=== PATIENT | male | born 1955 | race Caucasian/White ===

== ENCOUNTER 2020-10-15 13:58 | Inpatient (IN) | payer BC, SELFPAY ==
[2020-10-15] VITALS (18 sets, daily range): BP systolic 100–137; BP diastolic 42–67; PULSE 55–65; RESP 16–35; TEMP 36.4–36.8; O2SAT 87–98; BMI 30.4
--- NOTE | ~2020-10-15 | XR_ITS ---
XR abdomen/kub 1V 10/17/2020 17:57 INDICATION: Abdominal pain and bloating TECHNIQUE: KUB COMPARISON: None FINDINGS: Bowel gas pattern is normal. There is no evidence of free air, mass, organomegaly, ascites or obstruction. No abnormal calculi are seen. The bones appear intact. There is bibasilar airspace disease, consistent with pneumonia. IMPRESSION: 1: No acute abdominal abnormality identified. 2: Bibasilar airspace disease, compatible with pneumonia. Reviewed, dictated and finalized at location A. WICH MACHINE OPERATOR
--- NOTE | ~2020-10-15 | XR_ITS ---
EXAMINATION: XR chest 1V portable DATE: 10/15/2020 15:44 INDICATION: Shortness of breath. COVID-19 pneumonia. TECHNIQUE: A single frontal view of the chest was obtained. COMPARISON: Chest 2 views 06/20/2019 FINDINGS: There are patchy airspace opacities throughout the lungs bilaterally. No pleural effusion o r pneumothorax. The heart size is normal. IMPRESSION: 1. Diffuse lung disease, consistent with pneumonia. Reviewed, dictated and finalized at location A. CUTTER
--- NOTE | 2020-10-15 14:27 | ECG_ITS ---
Measurements Intervals [place] Rate: 57 P: 50 WI: 142 QRS: 63 QRSD: 84 T: 42 QT: 426 QTc: 418 Interpretive Statements SINUS BRADYCARDIA POSSIBLE LEFT ATRIAL ENLARGEMENT BASELINE ARTIFACT- II, III, AVF, V3 BORDERLINE ECG Electronically Signed On 10-15-2020 15:27:20 ROPER OPERATOR by Wang Chaves D.O.
[2020-10-15 14:59] LABS: Basophils Percent Auto 0.2 % (0.2-1.2); Eosinophils Percent Auto 0.1 % (0-4.4); Hematocrit 36.7 % (42.0-52.0); Hemoglobin 12.7 g/dL (14.0-18.0); Immature Granulocyte Absolute 0.05 K/mm3 (0.00-0.031); Immature Granulocyte Percent A 0.5 % (0-0.5); Lymphocytes Absolute Auto 0.81 K/mm3 (0.9-3.2); Lymphocytes Percent Auto 8.4 % (18.3-44.2); Mean Corpuscular HGB Conc 34.6 g/dl (32-36); Mean Corpuscular Hemoglobin 31.4 pg (26-34); Mean Corpuscular Volume 90.8 fl (80-100); Mean Platelet Volume 10.8 fl (7.4-10.4); Monocytes Absolute Auto 0.4 K/mm3 (0.1-0.6); Monocytes Percent Auto 4.6 % (2.6-8.5); Neutrophils Absolute Auto 8.3 K/mm3 (1.3-6.7); Neutrophils Percent Auto 86.2 % (45.5-73.1); Platelet Count Result 212 k/mm3 (150-375); Red Blood Count 4.04 M/mm3 (4.6-6.20); Red Cell Distribution Width 12.3 % (11.5-14.5); White Blood Count 9.7 K/mm3 (4.5-10.0)
[2020-10-15 15:08] LABS: Anion Gap 8 mmol/L (8-16); Blood Urea Nitrogen 19 mg/dL (9-20); Calcium 8.5 mg/dL (8.4-10.2); Carbon Dioxide 28 mmol/L (22-30); Chloride 91 mmol/L (98-107); Estimated CRCL calculation 102 ml/min; Estimated Glomerular Filt Rate > 60; Glucose 129 mg/dL (75-110); Potassium 4.2 mmol/L (3.4-5.0); Sodium 127 mmol/L (137-145)
--- NOTE | 2020-10-15 15:45 | PC.NURSE ---
patient brought back to ED room 14 with c/o cough and dyspnea. see initial notes. alert. oriented. patient has been in our waiting area due to no beds available in ED. no change in condition since triage completed. labs drawn in triage. CXR done and EKG done. patient now on 2L NC O2 due to decreased RA sats. on patient monitor. has call light in reach. discussed current treatment plan and expected wait time with patient.
--- NOTE | 2020-10-15 16:37 | ED.SOB ---
HPI - SOB/Dyspnea General Chief Complaint: Shortness of Breath/Dyspnea Stated Complaint: covid +, trouble breathing Time Seen by Provider: 10/15/20 15:47 History of Present Illness HPI Narrative: Patient is a 65-year-old male who presents ER with complications of COVID-19. Diagnosed on 10/09/2020. Reports he is just been feeling fatigued and mildly dyspneic. Reports he has persistent cough. Reports he is encouraged by his to come here to be evaluated because she felt he was declining and that symptoms of lasted too long. Patient found to be hypoxic in the 80s on room air. He is now requiring couple liters of oxygen. He has not been taking any additional medications. Reports he was exposed to at work before becoming ill. Related Data Home Medications Medication Instructions Recorded Confirmed aspirin 81 mg tablet,delayed 81 mg PO DAILY 10/06/19 04/17/20 release Allergies Allergy/AdvReac Type Severity Reaction Status Date / Time No Known Allergies Allergy Verified 05/02/20 09:02 Review of Systems Review of Systems: All systems reviewed & are unremarkable except as noted in HPI and below Constitutional: Constitutional: Denies chills, Reports fatigue and Denies fever(s) ENT: Denies nasal congestion and Denies sore throat Cardiovascular: Cardiovascular: Denies chest pain Respiratory: Respiratory: Reports cough, Reports dyspnea and Denies wheezing Gastrointestinal: Gastrointestinal: Denies abdominal pain, Denies nausea and Denies vomiting PMFSH Past Medical History Medical History (Updated 10/15/20 @ 17:06 by Roger Arciniega MD) Essential hypertension Surgical History Surgical History H/O adenoidectomy History of appendectomy History of tonsillectomy Family History Family History Mother Cerebrovascular accident Father Family history of heart disease in male family member before age 55 Family history of atrial fibrillation Cerebrovascular accident, Onset Age: 91 Sibling Family history of diabetes mellitus in first degree relative Family history of malignant neoplasm of breast in first degree relative Diabetes mellitus Family history of malignant neoplasm of breast Other Hypertension Social History Social History (Updated 05/02/20 @ 09:04 by Samantha Newby MA) Smoking status: Never smoker Second hand tobacco smoke exposure: No Alcohol intake: current Substance use: never Exam Narrative: Exam Narrative: GENERAL: Well-appearing, well-nourished, and in no acute distress. HEAD: Normocephalic, atraumatic. CHEST: Clear to auscultation. No respiratory distress. HEART: Regular rate and rhythm. Normal peripheral pulses. ABDOMEN: Soft, nontender, nondistended. EXTREMITIES: Normal range of motion. No edema. SKIN: Warm, dry, no rash. NEURO: Alert and oriented x3. PSYCH: Normal mood and affect. Course Course Emergency Course: Admit to the hospitalist service. Patient receiving IV Decadron. She has a 2 L oxygen requirement at this time. Vital Signs Vital signs: Vital Signs Temperature 97.6 F 10/15/20 14:22 Pulse Rate 55 L 10/15/20 14:22 Respiratory Rate 16 10/15/20 14:22 Blood Pressure 100/42 L 10/15/20 14:22 Pulse Oximetry 93 10/15/20 14:22 Temperature 97.6 F 10/15/20 14:22 Pulse Rate 64 10/15/20 16:31 Respiratory Rate 30 H 10/15/20 16:31 Blood Pressure 124/64 10/15/20 16:31 Pulse Oximetry 95 10/15/20 16:31 MDM - SOB/Dyspnea Lab Data Result diagrams: 10/15/20 14:43 10/15/20 14:43 Labs: Lab Results 10/15/20 10/15/20 Range/Units 14:43 14:43 WBC 9.7 (4.5-10.0) K/mm3 RBC 4.04 L (4.6-6.20) M/mm3 Hgb 12.7 L (14.0-18.0) g/dL Hct 36.7 L (42.0-52.0) % MCV 90.8 (80-100) fl MCH 31.4 (26-34) pg MCHC 34.6 (32-36) g/dl RDW 12.3 (11.5-14.5)
--- NOTE | 2020-10-15 16:52 | PC.NURSE ---
spoke with patient's . she will bring his CPap up for use when patient admitted.
--- NOTE | 2020-10-15 17:39 | PC.NURSE ---
report given to Joyce PAREKH on 3rd floor. patient to 302 via stretcher and repair technician. patient on 2L NC O2. no change in patient's condition. denies needs prior to transfer.
--- NOTE | 2020-10-15 17:45 | ADMGEN ---
This patient, Richard Spencer, was admitted to [facility] Surg Room 302-01. Patient/family oriented to hospital policies and general routines including ID bracelet, bed and alarms, visiting hours, pain management, procedures, bathroom and other care routines, personal items, smoking policy, room service/diet, and visiting hours. Reviewed plan of care. Information on how to activate the Rapid Response Team has been discussed. Patient/Family are encouraged to report perceived risks to care and to ask questions if they do not understand what they are told or what they should do.
--- NOTE | 2020-10-15 23:23 | PM.IMHP ---
H&P: HPI History of Present Illness Date/Time: 10/15/20 23:23 Chief Complaint: Shortness of breath Narrative: Richard Spencer is a 65 year old male tested positive for covid 19 1 week ago. The patient has hypertension obstructive sleep apnea. The patient does not wear oxygen at home. The positive test was on 10/09/2020. His fatigue or and mildly dyspneic. Persistent cough. Patient had sick contacts at his work. Patient was hypoxic and was in the 80s on room air. Was read as diffuse lung disease consistent with pneumonia. Patient was started on Decadron in the emergency room. The patient brought in his own CPAP machine but weeks plain that we cannot use it that room. He is on oxygen at 2 L per nasal cannula. The patient is satting 94% on the 2 L per nasal cannula. His and twin boys are negative. Patient is being admitted to inpatient status date of service is 10/15/2020 Review of Systems Review of Systems: All systems reviewed & are unremarkable except as noted in HPI and below Constitutional: Constitutional: Reports as per HPI and Reports no additional constitutional complaints Eyes: Eyes: Reports as per HPI and Reports no additional eye complaints ENT: Reports system reviewed and no additional complaints, except as documented and Reports Normal hearing present Cardiovascular: Cardiovascular: Reports no additional cardiovascular complaints Respiratory: Respiratory: Reports no additional respiratory complaints and Reports no additional respiratory complaints Gastrointestinal: Gastrointestinal: Reports as per HPI and Reports no additional gastrointestinal complaints Musculoskeletal: Musculoskeletal: Reports no additional musculoskeletal complaints Integumentary/Breasts: Skin/Breast: Reports system reviewed and no additional complaints, except as docu and Reports as per HPI Neurologic: Reports system reviewed and no additional complaints, except as documented, Reports as per HPI and Reports Normal hearing present Psychiatric: Psychiatric: Reports no additional psychiatric complaints and Reports as per HPI Endocrine: Endocrine: Reports no additional endocrine complaints Hematologic/Lymphatic: Hematologic/Lymphatic: Reports no additional hematologic/lymphatic complaints Allergic/Immunologic: Allergic/Immunologic: Reports no additional allergic/immunologic complaints [facility] Past Medical History Medical History (Updated 10/15/20 @ 23:42 by Elsi Hubbard NP) Essential hypertension Hyperlipidemia Surgical History Surgical History (Updated 10/15/20 @ 23:42 by Elsi Hubbard NP) H/O adenoidectomy H/O shoulder surgery Labrum tear repair History of appendectomy History of tonsillectomy Family History Family History Mother Cerebrovascular accident Father Family history of heart disease in male family member before age 55 Family history of atrial fibrillation Cerebrovascular accident, Onset Age: 91 Sibling Family history of diabetes mellitus in first degree relative Family history of malignant neoplasm of breast in first degree relative Diabetes mellitus Family history of malignant neoplasm of breast Other Hypertension Social History Social History (Updated 10/15/20 @ 23:43 by Elsi Hubbard NP) Social History: The patient lives with his . She has is durable power contract attorney for healthcare. He works for [employer]. He desires to be a full code. Lifelong nonsmoker. He has twin boys. No alcohol or illicit drugs. Smoking status: Never smoker Second hand tobacco smoke exposure: No Alcohol intake: current Drinks per week: 12 Substance use: never Gender identity (if verbalized by the patient): Male Sexual Orientation (if Verbalized by the Patient): Straight or Heterosexual Spiritual care concerns: No Meds Home Medications and Allergies Home Medications Medication Instructions
[2020-10-15 23:56] LABS: Alanine Aminotransferase 53 U/L (4-50)
[2020-10-16] VITALS (7 sets, daily range): BP systolic 121–155; BP diastolic 59–78; PULSE 54–74; RESP 18–20; TEMP 36.2–36.6; O2SAT 91–96
[2020-10-16] MEDS: guaiFENesin/DEXTROMETHORPHAN 10 ML UDC PO ×4 (00:28→21:54)
[2020-10-16] MEDS: REMDESIVIR 200 MG/NS 250 ML 200 MG/250 ML BAG 250 MG IVPB (00:55)
[2020-10-16 06:28] LABS: Basophils Percent Auto 0.1 % (0.2-1.2); Hematocrit 33.4 % (42.0-52.0); Hemoglobin 11.5 g/dL (14.0-18.0); Immature Granulocyte Absolute 0.06 K/mm3 (0.00-0.031); Immature Granulocyte Percent A 0.7 % (0-0.5); Lymphocytes Absolute Auto 0.58 K/mm3 (0.9-3.2); Mean Corpuscular HGB Conc 34.4 g/dl (32-36); Mean Corpuscular Hemoglobin 30.8 pg (26-34); Mean Corpuscular Volume 89.5 fl (80-100); Mean Platelet Volume 11.4 fl (7.4-10.4); Monocytes Absolute Auto 0.4 K/mm3 (0.1-0.6); Monocytes Percent Auto 4.6 % (2.6-8.5); Neutrophils Absolute Auto 7.3 K/mm3 (1.3-6.7); Neutrophils Percent Auto 87.6 % (45.5-73.1); Platelet Count Result 207 k/mm3 (150-375); Red Blood Count 3.73 M/mm3 (4.6-6.20); Red Cell Distribution Width 12.1 % (11.5-14.5); White Blood Count 8.3 K/mm3 (4.5-10.0)
[2020-10-16 07:11] LABS: Alanine Aminotransferase 64 U/L (4-50); Albumin Level 3.5 g/dL (3.5-5.1); Alkaline Phosphatase 100 U/L (38-126); Anion Gap 8 mmol/L (8-16); Aspartate Amino Transferase 94 U/L (17-59); Bilirubin,Total 0.8 mg/dL (0.2-1.3); Blood Urea Nitrogen 19 mg/dL (9-20); Calcium 8.4 mg/dL (8.4-10.2); Carbon Dioxide 27 mmol/L (22-30); Chloride 92 mmol/L (98-107); Estimated CRCL calculation 115 ml/min; Estimated Glomerular Filt Rate > 60; Glucose 155 mg/dL (75-110); Lactate Dehydrogenase 975 U/L (313-618); Magnesium 2.3 mg/dL (1.6-2.3); Sodium 127 mmol/L (137-145)
[2020-10-16] MEDS: carvediloL 25 MG TABLET PO ×2 (08:02→20:35)
[2020-10-16] MEDS: hydroCHLOROthiazide 12.5 MG CAPSULE PO (08:02)
[2020-10-16] MEDS: ASPIRIN 81 MG ENTERIC TABLET PO (08:02)
[2020-10-16] MEDS: DEXAMETHASONE SOD PHOS INJ 4 MG/ML VIAL 6 MG IV PUSH (08:03)
[2020-10-16] MEDS: ENOXAPARIN 40 MG/0.4 ML SYRINGE SUB-Q (08:03)
--- NOTE | 2020-10-16 16:56 | PM.IMPN ---
Progress Note: A&P Assessment and Plan (1) Acute respiratory failure with hypoxia: Code(s): J96.01 - Acute respiratory failure with hypoxia Status: Acute Assessment and Plan: Secondary to COVID-19 pneumonia. Patient was noted to be hypoxic in the 80s upon presentation. Currently requiring 2 L O2 per nasal cannula and maintaining adequate oxygen saturations. Continue supplemental O2 as needed with goal saturation 90% or above Treatment for COVID-19 as described below. (2) Pneumonia due to COVID-19 virus: Code(s): U07.1 - COVID-19; J12.89 - Other viral pneumonia Status: Acute Assessment and Plan: Patient tested postive for COVID-19 on 10/09/20. Symptoms started approximately 2 days prior. CXR showed diffuse lung disease. He has remained afebrile. Continue dexamethasone for 10 days, started on 10/16/2020 Continue room does severe for 5 days, started on 10/16/2020 Continue supportive care to include bronchodilators, guaifenesin, and incentive spirometer Trend acute phase reactants Supplemental O2 as above. Wean to goal. Continue isolation precautions (3) Essential hypertension: Code(s): I10 - Essential (primary) hypertension Status: Acute Assessment and Plan: Blood pressure evaluated today and is stable at 121/59. Continue Coreg, irbesartan, and hydrochlorothiazide Monitor blood pressure daily (4) Obstructive sleep apnea syndrome: Code(s): G47.33 - Obstructive sleep apnea (adult) (pediatric) Status: Chronic Assessment and Plan: Uses CPAP nightly Not able to use CPAP at this time as he is not a negative pressure room. Continue supplemental O2. Subjective Date/time seen: 10/16/20 16:56 Interval history: Date of service: 10/16/2020 Richard Spencer is a 65 year old male with a history of HTN, HLD, and ESTELA who is seen in follow-up for COVID-19 pneumonia. At this time he is feeling about the same. He complains of an upset stomach that he has a hard time describing. It seems that it is mostly like a gas pain in the lower abdomen. He denies nausea. He denies bloating or cramping. He has been eating and drinking well. He denies diarrhea. He had a regular bowel movement this morning. He denies anosmia or dysgeusia. He denies urinary symptoms. He reports sporadic, dry cough. He does endorse mild dyspnea on exertion that he notes when he gets up from bed or bends over. He has been able to walk to the bathroom without much difficulty. He denies chest pain or palpitations. He denies wheezing. No PND or orthopnea. He has no additional complaints at this time. He requested that his be present for the conversation via speaker phone. All of their questions were answered. Review of Systems Review of Systems: All systems reviewed & are unremarkable except as noted in HPI and below Exam Narrative: Exam Narrative: Mr. Spencer is a well-nourished 65-year-old male who is sitting up at the bedside. He appears comfortable and is in NARD. HR 61, BP 121/59, R 18, T 97.2?, 93% on 2 L Neuro: awake, alert and oriented x4, speech clear, no focal neuro deficits noted HEENMT: normocephalic, atraumatic, EOMI, sclerae anicteric, moist oral mucosa, tongue midline, nares patent Neck: supple, no lymphadenopathy Respiratory: Diminished breath sounds bilaterally, nonlabored breathing, dry cough noted on exam Cardio: regular rate, regular rhythm with S1-S2 Abdomen: nondistended, normoactive bowel sounds, soft, nontender to palpation, no rigidity or guarding Extremities: no edema, erythema, cyanosis, clubbing, or tenderness to palpation, DP pulses 2+ bilaterally Skin: no rashes or lesions, warm and dry Psych: appropriate mood and affect, judgment and insight intact Objective Data Vital Signs Vital Signs: Vital Signs - 24 hr 10/15/20 17:00 10/15/20 17:01 10/15/20 17:15 Temperature Pulse Rate 64 63 63 Respiratory Rate 35 H
[2020-10-16] MEDS: SIMETHICONE 80 MG TAB.CHEW PO ×2 (17:09→20:35)
[2020-10-16] MEDS: MELATONIN 5 MG TABLET PO (20:35)
[2020-10-16] MEDS: REMDESIVIR 100 MG/NS 250 ML 100 MG/250 ML BAG 250 MG IVPB (21:54)
[2020-10-17] VITALS (10 sets, daily range): BP systolic 134–155; BP diastolic 70–82; PULSE 51–70; RESP 18–20; TEMP 36.1–36.8; O2SAT 92–96
[2020-10-17 06:42] LABS: Hematocrit 33.7 % (42.0-52.0); Hemoglobin 11.7 g/dL (14.0-18.0); Mean Corpuscular HGB Conc 34.7 g/dl (32-36); Mean Corpuscular Hemoglobin 30.9 pg (26-34); Mean Corpuscular Volume 88.9 fl (80-100); Platelet Count Result 254 k/mm3 (150-375); Red Blood Count 3.79 M/mm3 (4.6-6.20); Red Cell Distribution Width 11.9 % (11.5-14.5); White Blood Count 8.7 K/mm3 (4.5-10.0)
[2020-10-17 07:01] LABS: Chloride 91 mmol/L (98-107)
[2020-10-17 07:12] LABS: Alanine Aminotransferase 119 U/L (4-50); Albumin Level 3.5 g/dL (3.5-5.1); Alkaline Phosphatase 103 U/L (38-126); Anion Gap 8 mmol/L (8-16); Aspartate Amino Transferase 138 U/L (17-59); Bilirubin,Total 0.8 mg/dL (0.2-1.3); Blood Urea Nitrogen 25 mg/dL (9-20); CRP 5.6 mg/dL (<1.0); Calcium 8.2 mg/dL (8.4-10.2); Carbon Dioxide 26 mmol/L (22-30); Estimated CRCL calculation 132 ml/min; Estimated Glomerular Filt Rate > 60; Glucose 139 mg/dL (75-110); Lactate Dehydrogenase 1059 U/L (313-618); Sodium 125 mmol/L (137-145)
[2020-10-17] MEDS: ALBUTEROL SULFATE (*SP) INHALER 2 PUFF INHALATION ×2 (08:21→20:23)
[2020-10-17] MEDS: ASPIRIN 81 MG ENTERIC TABLET PO (09:13)
[2020-10-17] MEDS: hydroCHLOROthiazide 12.5 MG CAPSULE PO (09:13)
[2020-10-17] MEDS: guaiFENesin 12 HR 600 MG TABCR PO ×2 (09:13→20:27)
[2020-10-17] MEDS: carvediloL 25 MG TABLET PO ×2 (09:14→20:27)
[2020-10-17] MEDS: ENOXAPARIN 40 MG/0.4 ML SYRINGE SUB-Q ×2 (09:14→20:29)
[2020-10-17] MEDS: DEXAMETHASONE SOD PHOS INJ 4 MG/ML VIAL 6 MG IV PUSH (09:14)
[2020-10-17] MEDS: IRBESARTAN 150 MG TABLET 300 MG PO (09:15)
[2020-10-17] MEDS: SIMETHICONE 80 MG TAB.CHEW PO ×4 (09:17→20:27)
[2020-10-17] MEDS: BENZONATATE 100 MG CAPSULE 200 MG PO (09:17)
--- NOTE | 2020-10-17 13:48 | PM.IMPN ---
Progress Note: A&P Assessment and Plan (1) Acute respiratory failure with hypoxia: Code(s): J96.01 - Acute respiratory failure with hypoxia Status: Acute Assessment and Plan: Secondary to COVID-19 pneumonia. Patient was noted to be hypoxic in the 80s upon presentation. Currently requiring 2 L O2 per nasal cannula and maintaining adequate oxygen saturations. Continue supplemental O2 as needed with goal saturation 90% or above. Wean to goal. Treatment for COVID-19 as described below. (2) Pneumonia due to COVID-19 virus: Code(s): U07.1 - COVID-19; J12.89 - Other viral pneumonia Status: Acute Assessment and Plan: Patient tested positive for COVID-19 on 10/09/20. Symptoms started approximately 2 days prior. CXR showed diffuse lung disease. He has remained afebrile. Continue dexamethasone for 10 days, started on 10/16/2020 Continue remdesivir for 5 days, started on 10/16/2020. Slight increase in ALT is noted and will be monitored. Total bilirubin is within normal limits there are no clinical signs of liver injury or inflammation. Remdesivir will be discontinued if ALT increases to >5x upper limit of normal. Continue supportive care to include bronchodilators, guaifenesin, and incentive spirometer Trend acute phase reactants. Increase in inflammatory markers noted today Supplemental O2 as above. Wean to goal. Continue isolation precautions (3) Essential hypertension: Code(s): I10 - Essential (primary) hypertension Status: Acute Assessment and Plan: Blood pressure evaluated today and is stable at 140/74. Continue coreg and irbesartan. Hydrochlorothiazide on hold. Monitor blood pressure daily (4) Obstructive sleep apnea syndrome: Code(s): G47.33 - Obstructive sleep apnea (adult) (pediatric) Status: Chronic Assessment and Plan: Uses CPAP nightly Not able to use CPAP at this time as he is not a negative pressure room. Continue supplemental O2. (5) Hyponatremia: Code(s): E87.1 - Hypo-osmolality and hyponatremia Status: Acute Assessment and Plan: Sodium noted to be mildly decreased. No prior labs available to establish a baseline. This may be secondary to HCTZ use or SIADH from acute infection. He is asymptomatic. At this time, will monitor sodium levels closely Hold HCTZ Consider addition of IV fluids if further decline, however given respiratory illness will be cautious with fluids Subjective Date/time seen: 10/17/20 13:48 Interval history: Date of service: 10/17/2020 Richard Spencer is a 65 year old male with a history of HTN, HLD, and ESTELA who is seen in follow-up for COVID-19 pneumonia. He is feeling about the same today. He feels that his shortness of breath is slowly improving. He is coughing a bit less frequently today. He feels that his cough is becoming looser and is more productive. He has had scant amounts of clear sputum production. He continues to endorse dyspnea on exertion but is comfortable at rest. Denies PND or orthopnea. No chest pain or palpitations. He does have some abdominal discomfort that is still lingering. He feels slightly bloated had 2 bowel movements yesterday. He is passing gas. He is tolerating his diet. He denies urinary symptoms. He has no additional concerns at this time. His was again present for the conversation via speaker phone, at the patient's request. Review of Systems Review of Systems: All systems reviewed & are unremarkable except as noted in HPI and below Exam Narrative: Exam Narrative: Mr. Spencer is a well-nourished 65-year-old male who is sitting up at the bedside. He appears comfortable and is in NARD. HR 63, BP 140/74, R 20, T 98.0?, 92% on 2 L Neuro: awake, alert and oriented x4, speech clear, no focal neuro deficits noted HEENMT: normocephalic, atraumatic, EOMI, sclerae anicteric, moist oral mucosa, tongue midline, nares
[2020-10-17] MEDS: MELATONIN 5 MG TABLET PO (20:27)
[2020-10-17] MEDS: REMDESIVIR 100 MG/NS 250 ML 100 MG/250 ML BAG 250 MG IVPB (21:04)
[2020-10-17] MEDS: ACETAMINOPHEN 325 MG TABLET 650 MG PO (22:04)
[2020-10-18] VITALS (8 sets, daily range): BP systolic 128–159; BP diastolic 52–81; PULSE 51–78; RESP 16–18; TEMP 36.1–36.6; O2SAT 93–100
[2020-10-18] MEDS: ALBUTEROL SULFATE (*SP) INHALER 2 PUFF INHALATION ×5 (01:35→20:30)
[2020-10-18 06:40] LABS: Hematocrit 34.3 % (42.0-52.0); Hemoglobin 12.1 g/dL (14.0-18.0); Mean Corpuscular HGB Conc 35.3 g/dl (32-36); Mean Corpuscular Hemoglobin 31.5 pg (26-34); Mean Corpuscular Volume 89.3 fl (80-100); Mean Platelet Volume 10.5 fl (7.4-10.4); Platelet Count Result 279 k/mm3 (150-375); Red Blood Count 3.84 M/mm3 (4.6-6.20); Red Cell Distribution Width 12.1 % (11.5-14.5); White Blood Count 7.7 K/mm3 (4.5-10.0)
[2020-10-18 07:46] LABS: Alanine Aminotransferase 99 U/L (4-50); Albumin Level 3.3 g/dL (3.5-5.1); Alkaline Phosphatase 90 U/L (38-126); Anion Gap 7 mmol/L (8-16); Aspartate Amino Transferase 96 U/L (17-59); Bilirubin,Total 0.7 mg/dL (0.2-1.3); Blood Urea Nitrogen 22 mg/dL (9-20); CRP 2.6 mg/dL (<1.0); Calcium 8.5 mg/dL (8.4-10.2); Carbon Dioxide 27 mmol/L (22-30); Chloride 94 mmol/L (98-107); Estimated CRCL calculation 115 ml/min; Estimated Glomerular Filt Rate > 60; Glucose 131 mg/dL (75-110); Lactate Dehydrogenase 881 U/L (313-618); Sodium 128 mmol/L (137-145)
[2020-10-18] MEDS: SIMETHICONE 80 MG TAB.CHEW PO ×4 (08:32→21:01)
[2020-10-18] MEDS: guaiFENesin 12 HR 600 MG TABCR PO ×2 (08:32→21:02)
[2020-10-18] MEDS: carvediloL 25 MG TABLET PO ×2 (08:32→21:02)
[2020-10-18] MEDS: ASPIRIN 81 MG ENTERIC TABLET PO (08:32)
[2020-10-18] MEDS: IRBESARTAN 150 MG TABLET 300 MG PO (08:32)
[2020-10-18] MEDS: ENOXAPARIN 40 MG/0.4 ML SYRINGE SUB-Q ×2 (08:33→21:02)
[2020-10-18] MEDS: DEXAMETHASONE SOD PHOS INJ 4 MG/ML VIAL 6 MG IV PUSH (08:33)
--- NOTE | 2020-10-18 14:19 | PM.IMPN ---
Progress Note: A&P Assessment and Plan (1) Acute respiratory failure with hypoxia: Code(s): J96.01 - Acute respiratory failure with hypoxia Status: Acute Assessment and Plan: Secondary to COVID-19 pneumonia. Patient was noted to be hypoxic in the 80s upon presentation. Currently requiring 2 L O2 per nasal cannula and maintaining adequate oxygen saturations. Continue supplemental O2 as needed with goal saturation 90% or above. Wean to goal. Treatment for COVID-19 as described below. (2) Pneumonia due to COVID-19 virus: Code(s): U07.1 - COVID-19; J12.89 - Other viral pneumonia Status: Acute Assessment and Plan: Patient tested positive for COVID-19 on 10/09/20. Symptoms started approximately 2 days prior. CXR showed diffuse lung disease. He has remained afebrile. Continue dexamethasone for 10 days, started on 10/16/2020 Continue remdesivir for 5 days, started on 10/16/2020. Continue supportive care to include bronchodilators, guaifenesin, and incentive spirometer Trend acute phase reactants. Improvement in inflammatory markers today Supplemental O2 as above. Wean to goal. Continue isolation precautions (3) Essential hypertension: Code(s): I10 - Essential (primary) hypertension Status: Acute Assessment and Plan: Blood pressure evaluated today and is stable at 148/68. Continue coreg and irbesartan. Hydrochlorothiazide on hold. Monitor blood pressure daily (4) Obstructive sleep apnea syndrome: Code(s): G47.33 - Obstructive sleep apnea (adult) (pediatric) Status: Chronic Assessment and Plan: Uses CPAP nightly Not able to use CPAP at this time as he is not a negative pressure room. Continue supplemental O2. (5) Hyponatremia: Code(s): E87.1 - Hypo-osmolality and hyponatremia Status: Acute Assessment and Plan: Sodium noted to be mildly decreased. No prior labs available to establish a baseline. This may be secondary to HCTZ use or SIADH from acute infection. He is asymptomatic. Improved today. Continue to monitor sodium levels closely Hold HCTZ (6) Abdominal bloating: Code(s): R14.0 - Abdominal distension (gaseous) Status: Acute Assessment and Plan: Patient complains of abdominal fullness he reports has been ongoing for several weeks now. He reports having regular bowel movements daily. He has been passing gas. He denies nausea or vomiting. He has been tolerating his diet. KUB showed normal bowel gas pattern and no acute abdominal abnormalities. Differential includes dietary intolerance to food/food group, IBS, or other functional bloating. Continue simethicone will trial Pepcid to see if this improves symptoms will add probiotic we discussed completing a food diary to determine if certain foods trigger symptoms. he will benefit from follow-up with his primary care provider. May consider referral to GI if symptoms persist. Subjective Date/time seen: 10/18/20 14:19 Interval history: Date of service: 10/18/2020 Richard Spencer is a 65 year old male with a history of HTN, HLD, and ESTELA who is seen in follow-up for COVID-19 pneumonia. He is feeling better today. He has been ambulating around his room more and feels that his dyspnea is improving. His cough is lessening. No chest pain or palpitations. He continues to endorse abdominal bloating and feelings of distention. He had a regular bowel movement today. his appetite has been good. He is passing gas. He notes that this has been going on for couple of weeks now maybe. no nausea or vomiting. Denies fevers, chills, dizziness, lightheadedness, headaches, or body aches. He has no additional concerns at this time. His was again present for the conversation via speaker phone, at the patient's request. Review of Systems Review of Systems: All systems reviewed & are unremarkable except as noted in HP
[2020-10-18] MEDS: SACCHAROMYCES BOULARDII 250 MG CAPSULE PO (17:27)
[2020-10-18] MEDS: MELATONIN 5 MG TABLET PO (21:01)
[2020-10-18] MEDS: FAMOTIDINE 20 MG TABLET PO (21:01)
[2020-10-18] MEDS: REMDESIVIR 100 MG/NS 250 ML 100 MG/250 ML BAG 250 MG IVPB (21:03)
[2020-10-18] MEDS: ACETAMINOPHEN 325 MG TABLET 650 MG PO (22:25)
[2020-10-18] MEDS: guaiFENesin/DEXTROMETHORPHAN 10 ML UDC PO (22:26)
[2020-10-19] VITALS (10 sets, daily range): BP systolic 115–164; BP diastolic 67–84; PULSE 48–71; RESP 18; TEMP 36.5–37; O2SAT 91–98
[2020-10-19] MEDS: ALBUTEROL SULFATE (*SP) INHALER 2 PUFF INHALATION ×2 (01:55→09:24)
[2020-10-19 06:57] LABS: Hematocrit 35.1 % (42.0-52.0); Hemoglobin 12.1 g/dL (14.0-18.0); Mean Corpuscular HGB Conc 34.5 g/dl (32-36); Mean Corpuscular Hemoglobin 30.6 pg (26-34); Mean Corpuscular Volume 88.9 fl (80-100); Mean Platelet Volume 10.4 fl (7.4-10.4); Platelet Count Result 317 k/mm3 (150-375); Red Blood Count 3.95 M/mm3 (4.6-6.20); White Blood Count 7.1 K/mm3 (4.5-10.0)
[2020-10-19] MEDS: DEXAMETHASONE SOD PHOS INJ 4 MG/ML VIAL 6 MG IV PUSH (07:58)
[2020-10-19] MEDS: IRBESARTAN 150 MG TABLET 300 MG PO (07:59)
[2020-10-19] MEDS: BENZONATATE 100 MG CAPSULE 200 MG PO (08:01)
[2020-10-19] MEDS: ENOXAPARIN 40 MG/0.4 ML SYRINGE SUB-Q (08:01)
[2020-10-19] MEDS: FAMOTIDINE 20 MG TABLET PO (08:02)
[2020-10-19] MEDS: SACCHAROMYCES BOULARDII 250 MG CAPSULE PO (08:02)
[2020-10-19] MEDS: ASPIRIN 81 MG ENTERIC TABLET PO (08:02)
[2020-10-19] MEDS: SIMETHICONE 80 MG TAB.CHEW PO (08:02)
[2020-10-19] MEDS: guaiFENesin 12 HR 600 MG TABCR PO (08:02)
[2020-10-19 09:20] LABS: CRP 1.7 mg/dL (<1.0); Lactate Dehydrogenase 728 U/L (313-618)
[2020-10-19 09:34] LABS: Alanine Aminotransferase 79 U/L (4-50); Albumin Level 3.2 g/dL (3.5-5.1); Alkaline Phosphatase 80 U/L (38-126); Anion Gap 4 mmol/L (8-16); Aspartate Amino Transferase 67 U/L (17-59); Bilirubin,Total 0.6 mg/dL (0.2-1.3); Blood Urea Nitrogen 18 mg/dL (9-20); Calcium 8.7 mg/dL (8.4-10.2); Carbon Dioxide 29 mmol/L (22-30); Chloride 99 mmol/L (98-107); Estimated CRCL calculation 115 ml/min; Estimated Glomerular Filt Rate > 60; Glucose 102 mg/dL (75-110); Potassium 3.5 mmol/L (3.4-5.0); Sodium 132 mmol/L (137-145)
--- NOTE | 2020-10-19 10:38 | HOMEO2EVAL ---
Home Oxygen Evaluation RC: Home Oxygen (O2) Evaluation Start: 10/19/20 08:54 Freq: ONCE Status: Active Protocol: RPE Activity Type Activity Date Activity User E-Sign Co-Sign Detail Recorded Client Recorded Date Recorded By Document 10/19/20 10:00 RES [email or web address] 10/19/20 10:32 RES Document 10/19/20 10:05 RES [email or web address] 10/19/20 10:34 RES Document 10/19/20 10:06 RES [email or web address] 10/19/20 10:37 RES Document 10/19/20 10:07 RES [email or web address] 10/19/20 10:37 RES Document 10/19/20 10:08 RES [email or web address] 10/19/20 10:37 RES Document 10/19/20 10:09 RES [email or web address] 10/19/20 10:37 RES 10/19/20 10/19/20 10/19/20 10:00 10:05 10:06 Home O2 Evaluation Test Phase Resting Exercise Exercise Oxygen Delivery Room Air Room Air Room Air Fraction of Inspired Oxygen (%) 21 21 21 Pulse Oximetry (90-100 %) 98 96 93 Pulse Rate (60-100 beats/min) 53 L 71 63 Activity Tolerance Good Good Good Rate of Perceived Exertion (PE) 6 Very, very 6 Very, very light light Home Oxygen Evaluation Comments pt sitting in pt is walking bed on room air back and forth . pt stated is in room, doing not sob. just fine, he stated he is still not sob. Treatment Charges O2 Evaluation 10/19/20 10/19/20 10/19/20 10:07 10:08 10:09 Home O2 Evaluation Test Phase Exercise Exercise Resting Oxygen Delivery Room Air Room Air Room Air Fraction of Inspired Oxygen (%) 21 21 21 Pulse Oximetry (90-100 %) 92 91 92 Pulse Rate (60-100 beats/min) 61 65 60 Activity Tolerance Good Good Good Rate of Perceived Exertion (PE) 6 Very, very 6 Very, very 6 Very, very light light light Home Oxygen Evaluation Comments pt completed walk and does not require oxygen. rn is aware. Treatment Charges
--- NOTE | 2020-10-19 10:38 | PCRCNOTE ---
home o2 eval is completed as of 1009. pt does not require home oxygen. RN is aware.
--- NOTE | 2020-10-19 10:58 | PM.DS ---
DS: Admitting Diagnosis Admitting Diagnosis Admitting Diagnosis: Hypoxia, COVID-19 pneumonia DS: Discharge Diagnosis Discharge Diagnosis (1) Acute respiratory failure with hypoxia: Code(s): J96.01 - Acute respiratory failure with hypoxia Status: Acute Assessment and Plan: Secondary to COVID-19 pneumonia. Patient was noted to be hypoxic in the 80s upon presentation. He required up to 2 L O2 per nasal cannula and was slowly weaned down. He was able to tolerate room air prior to discharge. Home O2 eval was performed and patient does not have any ongoing oxygen requirements. (2) Pneumonia due to COVID-19 virus: Code(s): U07.1 - COVID-19; J12.89 - Other viral pneumonia Status: Acute Assessment and Plan: Patient tested positive for COVID-19 on 10/09/20. Symptoms started approximately 2 days prior. CXR showed diffuse lung disease. He remained afebrile. He received 4 days of IV Remdesivir. He was started on IV dexamethasone which he will continue orally as an outpatient to complete a total of 10 days. Supportive care provided. Patient was weaned to room air as noted above and was feeling improved. Inflammatory markers were monitored and improved. We discussed CDC guidelines for self-isolation and other measures to help prevent the spread of COVID-19. (3) Essential hypertension: Code(s): I10 - Essential (primary) hypertension Status: Acute Assessment and Plan: Blood pressures were monitored and remained stable. He will continue his home regimen of Coreg, irbesartan, and hydrochlorothiazide. (4) Obstructive sleep apnea syndrome: Code(s): G47.33 - Obstructive sleep apnea (adult) (pediatric) Status: Chronic Assessment and Plan: Maintained on nightly CPAP therapy at home. CPAP was not used during his stay to prevent aerosolization. (5) Hyponatremia: Code(s): E87.1 - Hypo-osmolality and hyponatremia Status: Acute Assessment and Plan: Sodium noted to be mildly decreased. No prior labs available to establish a baseline. This may be secondary to HCTZ use or SIADH from acute infection. He remained asymptomatic. HCTZ was held briefly. Sodium steadily improved and was 132 at time of discharge. (6) Abdominal bloating: Code(s): R14.0 - Abdominal distension (gaseous) Status: Acute Assessment and Plan: Patient complained of abdominal fullness he reports has been ongoing for several weeks now. He reports having regular bowel movements daily and was passing gas. He denied nausea or vomiting. He tolerated his diet. KUB showed normal bowel gas pattern and no acute abdominal abnormalities. Differential includes dietary intolerance to food/food group, IBS, or other functional bloating. Simethicone improved his symptoms and he can continue this as an outpatient. He was started on daily probiotic. We discussed completing a food diary to determine if certain foods trigger symptoms. He will benefit from follow-up with his primary care provider. May consider referral to GI if symptoms persist. DS: Summary Hospital Course Reason for hospitalization: COVID-19 pneumonia Hospital Course: Date of admission: 10/15/2020 Date of discharge: 10/19/2020 Richard Spencer is a 65-year-old with a history of hypertension, hyperlipidemia, and ESTELA who presented to the emergency department on 10/15/2020 with complaints of dyspnea and persistent cough after being diagnosed with COVID-19 on 10/09/2020. Upon presentation to the emergency department, he was noted to be hypoxic in the 80s, which improved with supplemental O2. Additional vital signs stable and he was afebrile. H&H slightly decreased, sodium mildly low, additional electrolytes stable, CXR showed diffuse lung disease consistent with pneumonia. He was admitted to the hospitalist service for further evaluation and management. Please see above for further details. He was treated w
== END 2020-10-19 12:05 | disposition home or self-care (01) | DRG 177 ==
LOC: ANHED 17:06 → ANH3MEDSUR 17:19
PROVIDERS: Nurse Practitioner; Admitting Provider Internal Medicine; Emergency Provider Emergency Medicine; PCP Internal Medicine; Visit Provider Physician Assistant
DX: U07.1 COVID-19 (principal); J96.01 Acute respiratory failure with hypoxia; J12.89 Other viral pneumonia; E87.1 Hypo-osmolality and hyponatremia; T50.2X5A Adverse effect of carbonic-anhydrase inhibitors, benzothiadiazides and other diuretics, initial encounter; G47.33 Obstructive sleep apnea (adult) (pediatric); I10 Essential (primary) hypertension; E78.5 Hyperlipidemia, unspecified; R14.0 Abdominal distension (gaseous)
CPT/HCPCS: 36415; 71045; 74018; 80048; 80053; 82728; 83615; 83735; 84443; 84460; 85025; 85027; 86140; 93005; 94618; 94640; 96374; 99285; A9270; G0378; J1100; J1650

== ENCOUNTER 2021-05-22 15:44 | Outpatient (CLI) | payer BC, SELFPAY ==
--- NOTE | ~2021-05-22 | MR_ITS ---
EXAMINATION: MR lumbar spine wo con EXAM DATE: 05/22/2021 16:40 INDICATION: M54.9 - Dorsalgia, unspecified . TECHNIQUE: Multi-sequential, multiplanar MR images of the lumbar spine were obtained without contrast . Sagittal T1, T2, T2 fat saturation images. Axial T2 weighted images. Comparison is made to prior examination from 05/10/2019. FINDINGS: There is 1.5 cm hemangioma within the L2 vertebral body. There is moderate disc disease at L5-S1, mild at the 2 levels above. The vertebral bodies are aligned in the AP dimension. Paraspinal s oft tissue is unremarkable. The vertebral bodies are aligned in the AP dimension. The conus medullari s terminates at the T12-L1 level and has normal signal intensity and morphology. Level by level evaluation: T12-L1: Disc does not extend beyond the endplate margin. Facet arthropathy: Mild. Neural foraminal stenosis: No stenosis. Central canal stenosis: No stenosis. L1-L2: Disc does not extend beyond the endplate margin. Facet arthropathy: Mild. Neural foraminal stenosis: No stenosis. Central canal stenosis: No stenosis. L2-L3: There is a minimal diffuse disc bulge. Facet arthropathy: Mild. Neural foraminal stenosis: No stenosis. Central canal stenosis: No stenosis. L3-L4: There is a mild diffuse disc bulge. Facet arthropathy: Mild to moderate. Neural foraminal stenosis: Mild bilateral. Central canal stenosis: Mild. L4-L5: There is a mild to moderate diffuse disc bulge. Superimposed small right central extrusion, in ferior migration. Facet arthropathy: Mild to moderate. Neural foraminal stenosis: Mild to moderate bilateral, right greater than left. Central canal stenosis: Mild. L5-S1: There is a moderate diffuse disc bulge. Facet arthropathy: Moderate. Neural foraminal stenosis: Moderate bilateral, left greater than right. Central canal stenosis: Mild to moderate. On previous study there was a sizable sequestration from the L5-S1 level narrowing the left lateral r ecess. This is no longer present. The right central extrusion from L4-5 is new compared to prior stud y. There is been some progression in the L5-S1 disc disease and mild progression in lumbar arthropath y. IMPRESSION: Up to moderate lumbar spondylosis, as detailed above. Reviewed, dictated and finalized at location B.
== END 2021-05-22 15:45 | disposition home or self-care (01) ==
LOC: ANHIMG 15:51
PROVIDERS: PCP Internal Medicine; Visit Provider Internal Medicine
DX: M54.9 Dorsalgia, unspecified (principal); M47.816 Spondylosis without myelopathy or radiculopathy, lumbar region
CPT/HCPCS: 72148

== ENCOUNTER → 2022-06-02 16:47 | Outpatient (CLI) | payer BC, SELFPAY ==
--- NOTE | ~2022-06-02 | XR_ITS ---
EXAM: XR knee LT 3V DATE: 06/02/2022 17:55 HISTORY: M25.562 - Pain in left knee . COMPARISON: 09/08/2011. FINDINGS: Normal mineralization. No fracture or dislocation. No lytic or blastic lesion. Severe medi al joint space narrowing. Loss of valgus alignment. Moderate tricompartmental osteophytosis. Small vo lume joint effusion. No erosion or periosteal change. Soft tissues within normal limits. IMPRESSION: Tricompartmental left knee osteoarthritis, severe in the medial compartment. Reviewed, dictated and finalized at location K. IMPRESSION: Tricompartmental left knee osteoarthritis, severe in the medial com partment.
== END ==
PROVIDERS: PCP Internal Medicine; Visit Provider Internal Medicine
DX: M17.12 Unilateral primary osteoarthritis, left knee (principal)
CPT/HCPCS: 73562

== ENCOUNTER → 2022-07-28 16:23 | Outpatient (CLI) | payer BC, SELFPAY ==
--- NOTE | ~2022-07-28 | XR_ITS ---
XR knee RT 3V 07/28/2022 16:44 Indication: Right knee pain Procedure: 3 views right knee Comparison: No prior studies for comparison. Findings: There is mild osteoarthritis of the right knee. No fracture or traumatic malalignment. No s ignificant joint effusion. No significant soft tissue abnormality. No foreign bodies. Impression: 1: Mild tricompartment osteoarthritis of the right knee. Reviewed, dictated and finalized at location A. Impression: 1: Mild tricompartment osteoarthritis of the right knee.
== END ==
PROVIDERS: PCP Internal Medicine; Visit Provider Internal Medicine
DX: M17.11 Unilateral primary osteoarthritis, right knee (principal)
CPT/HCPCS: 73562

== ENCOUNTER → 2022-09-29 16:53 | Outpatient (CLI) | payer BC, SELFPAY ==
--- NOTE | ~2022-09-29 | MR_ITS ---
EXAMINATION: MR knee RT wo con DATE: 09/29/2022 17:30 INDICATION: Right knee pain TECHNIQUE: Magnetic resonance imaging (MRI) of the right knee was performed without intravenous contr ast. Sequences included coronal PD-weighted FSE, coronal PD-weighted FS FSE, sagittal T2-weighted FS E, sagittal PD-weighted FS FSE and axial PD weighted fat saturated FSE. COMPARISON: None. FINDINGS: Medial compartment: Complex, likely parrot beak configuration which appears to extend across the inner half of the shaper hand ior horn of the medial meniscus. Overlying the region of the meniscal tear is a region of partial-thi ckness chondral ulceration/fissuring involving greater than 50% the cartilage thickness but without d egenerative subchondral changes present for the anterior to the central weightbearing medial femoral condyle. There is an additional small deep chondral fissure without degenerative subchondral changes at the anterior aspect of the medial tibial plateau. There is a second separate small tear along the third of the body of the medial meniscus which is of indeterminate morphology. Underlying the second meniscal tear is a small region of deep chondral ulceration with minimal cortical irregularity and mi ld subarticular edema-like signal change along the medial rim of the medial tibial plateau. Lateral compartment: Lateral meniscus is normal. Articular cartilage is normal. Patellofemoral compartment: Extensive deep chondral ulceration in places reaching full or near full-thickness involving the later al trochlea, trochlear groove and to lesser extent the medial trochlea with scattered associated pema ical irregularity and mild subarticular edema-like and cystlike changes. Subtle partial-thickness cho ndral fissuring without degenerative subchondral changes along the inferior third of the lateral gonzalez llar facet. Ligaments and tendons: Anterior and posterior cruciate ligaments are normal. The medial collateral ligament and fibular pop ateral ligament complex are normal. The extensor mechanism is normal. The visualized medial and later al hamstring tendons as well as the iliotibial band are normal. Fluid: Small knee joint effusion. No loose osteochondral bodies identified. Likely partially ruptured Martin' s cyst measuring approximately 6 cm craniocaudally with surrounding nonloculated fluid tracking cauda lly along the superficial margin of the medial head of the gastrocnemius muscle. Osseous/other: Bone alignment is normal. No fracture or pathologic marrow replacing process. IMPRESSION: 1. Complex medial meniscal tear. 2. Mild osteoarthritis with regions of moderate and high-grade chondromalacia in the patellofemoral a nd medial compartments, the former with the more extensive high-grade chondromalacia along the trochl ea. 3. Likely reactive small right knee joint effusion and moderate-sized likely partially ruptured Martin 's cyst. Reviewed, dictated and finalized at location A. ING PROJECT COORDINATOR IMPRESSION: 1. Complex medial meniscal tear. 2. Mild osteoarthritis with regions of moderate and high-grade chondromalacia i n the patellofemoral and medial compartments, the former with the more extensiv e high-grade chondromalacia along the trochlea. 3. Likely reactive small right knee joint effusion and moderate-sized likely pa rtially ruptured Martin's cyst.
== END ==
PROVIDERS: PCP Internal Medicine; Visit Provider Orthopaedic Surgery
DX: S83.231A Complex tear of medial meniscus, current injury, right knee, initial encounter (principal); X58.XXXA Exposure to other specified factors, initial encounter; M17.11 Unilateral primary osteoarthritis, right knee
CPT/HCPCS: 73721

== ENCOUNTER 2022-11-18 10:29 | Outpatient (CLI) | payer BC, SELFPAY ==
--- NOTE | 2022-11-18 10:38 | ECG_ITS ---
Measurements Intervals [place] Rate: 54 P: 24 IL: 124 QRS: 52 QRSD: 92 T: 34 QT: 410 QTc: 389 Interpretive Statements SINUS BRADYCARDIA BASELINE ARTIFACT- I, II, III, AVR, AVL, AVF, V4-V6 BORDERLINE ECG COMPARED TO ECG 10/15/2020 14:52:11 NO SIGNIFICANT CHANGES Electronically Signed On 11-18-2022 12:13:35 ANALYTICAL MANAGER by Wang Chaves D.O.
== END 2022-11-18 10:30 | disposition home or self-care (01) ==
LOC: ANHSURGERY 10:30
PROVIDERS: PCP Internal Medicine; Visit Provider Orthopaedic Surgery
DX: R00.1 Bradycardia, unspecified (principal); I10 Essential (primary) hypertension; E78.5 Hyperlipidemia, unspecified
CPT/HCPCS: 93005

== ENCOUNTER 2022-11-21 03:21 | Day surgery (SDC) | payer BC, SELFPAY ==
[2022-11-17 15:38] VITALS: BMI 30.9
--- NOTE | 2022-11-17 15:42 | PC.NURSE ---
Report to the Outpatient Waiting Room, entrance under the green pavilion located off [facility], at time 1:00 on date 11/21/22. Planned Procedure Time: 3:00. Time changes happen often and if your time is changed the preop area will call you the afternoon before. - You and your visitor will be asked to self-screen and do not enter if you have any COVID symptoms. - Only one visitor is requested with a max of two and NO children visitors are allowed at this time. - The patient visitor may be requested to leave or wait in car when not with patient due to distancing restrictions. - A mask is optional within the hospital at this time. Patients may have clear liquids (water, carbonated beverages, clear teas, apple juice) until 3 hours prior to surgery (12:00) with a maximum of 20 ounces. - No food from midnight until time of surgery Take the following medications with a SIP of water the morning of surgery: CARVEDILOL DO NOT STOP ANY OF YOUR OTHER PRESCRIPTION MEDICATIONS PRIOR TO SURGERY ?EXCEPT THE FOLLOWING Medications to discontinue per physician: N/A Date to take last dose: N/A Please no make-up, nail amharic, hairspray, perfume, deodorant, or body powder the day of surgery. No jewelry (including any body piercings) or valuables the day of surgery, leave them at home. Please take a shower or bath the night before, or the morning of, surgery with an antibacterial soap. Wear comfortable, loose fitting clothing. - Jewelry must be removed prior to entering the operating room. Rings and piercings that are not removed may be cut off. - The hospital will not accept responsibility for valuables. - Please leave all valuables, including medications, at home the day of surgery. If you are going home after surgery, a licensed over the road driver must drive you home. - NO public transportation without another adult if you receive anesthesia. - We recommend that an adult stay with you for 24 hours following discharge. - We also recommend that you do not drive, make important decision, drink alcoholic beverages, or take any drugs that were not prescribed by your health care provider for at least 24 hours after your discharge time. Follow any additional instructions given to you from your surgeon. If you or anyone in your household have experienced Covid symptoms in the past week, please notify your surgeon or the nurse liaison at the phone number below for possible testing. Telephone instructions given to MIGUEL ANGEL BAGLEY and asked if any additional questions and then verbalized understanding. Patient advised to call surgeon office or pre surgery nurse liaison [phone] if any additional questions.
[2022-11-21] VITALS (7 sets, daily range): BP systolic 148–172; BP diastolic 69–86; PULSE 52–69; RESP 12–16; TEMP 36–36.6; O2SAT 95–100
--- NOTE | 2022-11-21 11:43 | WPDHPUPDATE1 ---
History and Physical Update Update Date/Time: 11/21/22 11:43 History and Physical has been reviewed, including an updated exam of the patient. There are NO changes in the patient's condition. Risks, benefits, and alternatives have been discussed and questions answered. Patient agrees to proceed with procedure.
--- NOTE | 2022-11-21 13:23 | WPDANESEPPF ---
Anes - Initial Pre Proc Eval Procedure: Operation Date: 11/21/22 15:00 Proposed Procedures p Arthroscopic Right Knee, Partial Medial Meniscectomy - Kumar Bryant MD Date/Time: 11/21/22 13:23 Surgeon: Kumar Bryant MD Pre Op Diagnosis: Rt Knee Medial Meniscus Tear Patient Data Age: 67 Gender: M Height: 1.83 m Weight: 103.42 kg Allergies Allergy/AdvReac Type Severity Reaction Status Date / Time No Known Allergies Allergy Verified 11/17/22 15:36 Home Medications Medication Instructions Recorded Confirmed Type carvedilol 25 mg tablet 25 mg PO Q12H #180 tabs 05/06/22 11/17/22 Rx lovastatin 40 mg tablet 80 mg PO DAILY #180 tabs 05/06/22 11/17/22 Rx irbesartan 300 1 tablet PO DAILY #90 tabs 11/10/22 11/17/22 Rx mg-hydrochlorothiazide 12.5 mg tablet ECG: Date of Service: 11/18/22 Procedure(s): CA 12 lead EKG Accession Number(s): [id number] cc: ~ ? Measurements Intervals? [place]? Rate: ? 54 ? P:? 24 [place]: ? 124? QRS:? 52 QRSD: ? 92 ? T:? 34 QT: ? 410? QTc:? 389? Interpretive Statements SINUS BRADYCARDIA BASELINE ARTIFACT- I, II, III, AVR, AVL, AVF, V4-V6 BORDERLINE ECG COMPARED TO ECG 10/15/2020 14:52:11 NO SIGNIFICANT CHANGES Electronically Signed On 11-18-2022 12:13:35 RIG WELDER by Wang Chaves D.O. Patient hx anesthesia problems: none Family hx anesthesia problems: none Results Review: All pre-operative results and documents have been reviewed as part of the pre-operative evaluation. [facility] Past Medical History Medical History Essential hypertension History of stress test Hyperlipidemia Surgical History Surgical History H/O adenoidectomy H/O shoulder surgery Labrum tear repair History of appendectomy History of tonsillectomy Family History Family History Mother Cerebrovascular accident Father Family history of heart disease in male family member before age 55 Family history of atrial fibrillation Cerebrovascular accident, Onset Age: 91 Sibling Family history of diabetes mellitus in first degree relative Family history of malignant neoplasm of breast in first degree relative Diabetes mellitus Family history of malignant neoplasm of breast Other Hypertension Social History Social History Social History: The patient lives with his . She has is durable power lip of shank cutter for healthcare. He works for [employer]. He desires to be a full code. Lifelong nonsmoker. He has twin boys. No alcohol or illicit drugs. Smoking status: Never smoker Second hand tobacco smoke exposure: No Alcohol intake: current Drinks per week: 7 Alcohol use details: occasional Substance use: never Substance use type: does not use Lack of Transportation: No Lack of Food: Never True Current Housing: I Have Housing Concerned About Future Housing: No Difficulty Paying Gas/Electric Bills: No Difficulty Paying for Meds: No Currently Unemployed: No Education: Bachelor's Degree Difficulty w/ Childcare or Family Care: No Living arrangements: with family Gender identity (if verbalized by the patient): Male Sexual Orientation (if Verbalized by the Patient): Straight or Heterosexual Spiritual care concerns: No Anes - Eval Final PreProcedure Day of Procedure 11/21/22 13:23 Patient weight: obese Heart: regular rate and rhythm Lungs: clear to auscultation and normal air movement Airway: Mallampati scale class II Ne
--- NOTE | 2022-11-21 13:36 | WPDANESEPPF ---
Anes - Initial Pre Proc Eval Procedure: Operation Date: 11/21/22 15:00 Proposed Procedures p Arthroscopic Right Knee, Partial Medial Meniscectomy - Kumar Bryant MD Date/Time: 11/21/22 13:36 Surgeon: Kumar Bryant MD Pre Op Diagnosis: Rt Knee Medial Meniscus Tear Patient Data Age: 67 Gender: M Height: 1.83 m Weight: 103.42 kg Allergies Allergy/AdvReac Type Severity Reaction Status Date / Time No Known Allergies Allergy Verified 11/25/22 09:04 Home Medications Medication Instructions Recorded Confirmed Type carvedilol 25 mg tablet 25 mg PO Q12H #180 tabs 05/06/22 12/05/22 Rx lovastatin 40 mg tablet 80 mg PO DAILY #180 tabs 05/06/22 12/05/22 Rx irbesartan 300 1 tablet PO DAILY #90 tabs 11/10/22 12/05/22 Rx mg-hydrochlorothiazide 12.5 mg tablet acetaminophen 650 mg 650 mg PO Q8H 11/25/22 12/05/22 History tablet,extended release tadalafil 10 mg tablet 10 mg PO DAILY PRN sexual activity 11/25/22 12/05/22 Rx #9 tabs Patient hx anesthesia problems: none Family hx anesthesia problems: none Results Review: All pre-operative results and documents have been reviewed as part of the pre-operative evaluation. [facility] Past Medical History Medical History Essential hypertension History of stress test Hyperlipidemia Obstructive sleep apnea syndrome Surgical History Surgical History H/O adenoidectomy H/O shoulder surgery Labrum tear repair History of appendectomy History of tonsillectomy Family History Family History Mother Cerebrovascular accident Father Family history of heart disease in male family member before age 55 Family history of atrial fibrillation Cerebrovascular accident, Onset Age: 91 Sibling Family history of diabetes mellitus in first degree relative Family history of malignant neoplasm of breast in first degree relative Diabetes mellitus Family history of malignant neoplasm of breast Other Hypertension Social History Social History Social History: The patient lives with his . She has is durable power telephone diaphragm assembler for healthcare. He works for [employer]. He desires to be a full code. Lifelong nonsmoker. He has twin boys. No alcohol or illicit drugs. Smoking status: Never smoker Second hand tobacco smoke exposure: No Alcohol intake: current Drinks per week: 7 Alcohol use details: occasional Substance use: never Substance use type: does not use Lack of Transportation: No Lack of Food: Never True Current Housing: Decline to Answer Concerned About Future Housing: Decline to Answer Difficulty Paying Gas/Electric Bills: Decline to Answer Difficulty Paying for Meds: Decline to Answer Currently Unemployed: Decline to Answer Education: Decline to Answer Difficulty w/ Childcare or Family Care: Decline to Answer Living arrangements: with family Gender identity (if verbalized by the patient): Male Sexual Orientation (if Verbalized by the Patient): Straight or Heterosexual Spiritual care concerns: No Anes - Eval Final PreProcedure Day of Procedure 11/21/22 13:36 Patient weight: obese Heart: regular rate and rhythm Lungs: clear to auscultation Airway: Mallampati scale class II Neurological: alert and oriented Last oral intake: >/= 8 hours ASA classification: III Emergent: no Anesthetic plan: proceed Anesthesia type and monitoring: general LMA and standard monitoring Results Review: All pre-operative results and documents have been reviewed as part of the pre-operative evaluation. Informed Consent: The patient's anesthetic plan and its attendant risks and benefits were discussed with the patient/family/POA. Questions were solicited and answers prov
[2022-11-21] MEDS: LACTATED RINGERS 1,000 ML 30 ML IV CONT (14:30)
[2022-11-21] MEDS: ACETAMINOPHEN 500 MG TABLET 1000 MG PO (14:30)
[2022-11-21] MEDS: KETOROLAC 15 MG/ML VIAL (*BKC) IV PUSH (14:30)
[2022-11-21] MEDS: ceFAZolin 2 GM/D5W 50 ML 2 GM/50 ML BAG IVPB (15:02)
[2022-11-21] MEDS: BUPIVACAINE/EPINEPHRINE 0.5% 10 ML VIAL 20 ML INFILTRATE (15:27)
--- NOTE | 2022-11-21 16:04 | P.OP_ITS ---
Procedure Note - Detailed Date of Procedure 11/21/22 Pre-op Diagnosis Rt Knee Medial Meniscus Tear Post-op Diagnosis Same Procedure Performed Arthroscopic partial medial meniscectomy, right knee. Surgeon Kumar Bryant MD Anesthesia General Findings Extensive complex tear required subtotal meniscectomy. Medial femur chondromalacia grade 3, medial tibia grade 3. Lateral femur chondromalacia grade 4 (anterior only), lateral tibia grade 0. Patellar grade 3, trochlea grade 4. Description of Procedure The patient was identified and the surgical site confirmed and signed in the preoperative holding area. Antibiotics were started per protocol. She was broug ht to the operative room and transferred to the OR table. A general anesthetic was administered. Supine position with the operative lower extremity position in the leg coronel after placement of a well padded tourniquet. The leg support was lowered and the contralateral limb was supported with a soft bolster. The knee was prepped and draped in the usual sterile fashion. A time-out was performed. The portal sites were marked and infiltrated with 0.5% Marcaine 20 mL. The limb was exsanguinated and the tourniquet inflated to 300 mL Hg. Standard inferolateral and inferomedial portals were established. Inflow was obtained with the saline pump. The camera was introduced. Diagnostic inspection of the joint was accomplished. The meniscus was debrided with the arthroscopic shaver and punches until stable. The radiofrequency probe was also used for further d?bridement. Gentle chondroplast where able. The arthroscopic instruments were removed. The tourniquet released and wounds closed with subcutaneous 4-0 Monocryl absorbable suture. Steri strips and a sterile dressing were applied. A light elastic wrap was placed. The patient was extubated and brought to the recovery room in stable condition. Estimated Blood Loss -5.0 Drains No Complications No immediate complications Condition Stable Disposition PACU [facility] Billing Surgery - Charge Forward: Surgery Billing
[2022-11-21] MEDS: oxyCODONE HCL (*CRX) 5 MG TAB IR PO (17:08)
--- NOTE | 2022-11-21 17:37 | SUR.PHASEII ---
Preferred pharmacy was the incorrect one. RN changed it to correct one and Dr. Bryant is going to resend prescription to correct pharmacy.
== END 2022-11-21 17:47 | disposition home or self-care (01) ==
PROVIDERS: PCP Internal Medicine; Visit Provider Orthopaedic Surgery
PROC: (CPT 29870; principal; 2022-11-21 15:00)
DX: M23.331 Other meniscus derangements, other medial meniscus, right knee (principal); M22.41 Chondromalacia patellae, right knee; I10 Essential (primary) hypertension; E78.5 Hyperlipidemia, unspecified; E66.9 Obesity, unspecified; Z68.30 Body mass index [BMI] 30.0-30.9, adult
CPT/HCPCS: 29881; A9270; J0690; J1100; J1885; J2250; J2405; J2704; J3010; J7120

== ENCOUNTER 2022-12-22 17:06 | Outpatient (CLI) | payer BC, SELFPAY ==
[2022-12-22 17:57] LABS: Influenza A QL RT-PCR Negative (Negative); Influenza B QL RT-PCR Negative (Negative); RSV RNA, RT-PCR Negative (Negative); SARS-CoV-2 RNA PCR Negative
== END 2022-12-22 17:07 | disposition home or self-care (01) ==
LOC: ANHLAB 17:08
PROVIDERS: PCP Internal Medicine; Visit Provider Physician Assistant
DX: R68.89 Other general symptoms and signs (principal); Z20.822 Contact with and (suspected) exposure to COVID-19
CPT/HCPCS: 87637

== ENCOUNTER 2023-01-07 17:16 | Outpatient (CLI) | payer BC, SELFPAY ==
--- NOTE | ~2023-01-07 | XR_ITS ---
Clinical Indication: Cough PA and lateral views of the chest: Comparison: 10/15/2020 Findings: Calcified right midlung granuloma noted. Probable additional calcified left basilar granulo ma or possibly nipple shadow. The lungs are otherwise clear, without evidence of focal consolidation or pleural effusion. Calcified right hilar lymph nodes present. Cardiomediastinal silhouette is withi n normal limits. Bones and soft tissues are unremarkable. Impression: Evidence of prior granulomatous disease. No acute pulmonary abnormality identified. Reviewed, dictated and finalized at location . Impression: Evidence of prior granulomatous disease. No acute pulmonary abnormality identified.
== END 2023-01-07 17:17 | disposition home or self-care (01) ==
LOC: ANHIMG 17:19
PROVIDERS: PCP Internal Medicine; Visit Provider Internal Medicine
DX: R05.9 Cough, unspecified (principal); R91.8 Other nonspecific abnormal finding of lung field
CPT/HCPCS: 71046

== ENCOUNTER 2023-04-27 09:11 | Outpatient (CLI) | payer BC, SELFPAY ==
--- NOTE | 2023-04-27 10:38 | ECG_ITS ---
Measurements Intervals [place] Rate: 56 P: 62 [place]: 159 QRS: 50 QRSD: 90 T: 23 QT: 414 QTc: 401 Interpretive Statements SINUS BRADYCARDIA BORDERLINE ECG COMPARED TO ECG 11/18/2022 10:53:40 NO SIGNIFICANT CHANGES Electronically Signed On 04-27-2023 10:55:59 CDT by Wang Chaves D.O.
[2023-04-27 11:07] LABS: Hematocrit 41.3 % (42.0-52.0); Hemoglobin 13.7 g/dL (14.0-18.0)
[2023-04-27 11:24] LABS: Albumin Level 4.4 g/dL (3.5-5.1); Estimated Glomerular Filt Rate > 60; Glucose 93 mg/dL (65-110)
== END 2023-04-27 09:12 | disposition home or self-care (01) ==
PROVIDERS: PCP Internal Medicine; Visit Provider Orthopaedic Surgery
DX: E78.5 Hyperlipidemia, unspecified (principal); E87.1 Hypo-osmolality and hyponatremia; I10 Essential (primary) hypertension; K21.9 Gastro-esophageal reflux disease without esophagitis; M17.12 Unilateral primary osteoarthritis, left knee; R73.9 Hyperglycemia, unspecified; E66.9 Obesity, unspecified; R09.02 Hypoxemia
CPT/HCPCS: 36415; 82040; 82565; 82947; 85014; 85018; 93005

== ENCOUNTER 2023-06-23 10:01 | Outpatient (CLI) | payer BC, SELFPAY ==
[2023-06-23 11:08] LABS: Urine Cotinine NEGATIVE
== END 2023-06-23 10:02 | disposition home or self-care (01) ==
LOC: ANHSURGERY 10:04
PROVIDERS: PCP Internal Medicine; Visit Provider Orthopaedic Surgery
DX: M17.12 Unilateral primary osteoarthritis, left knee (principal); Z01.818 Encounter for other preprocedural examination
CPT/HCPCS: 80307; 87081

== ENCOUNTER 2023-07-23 01:53 | Day surgery (SDC) | payer BC, SELFPAY ==
[2023-06-23 09:24] VITALS: BP 138/72; PULSE 50; RESP 20; TEMP 36.6; O2SAT 99; BMI 31.9
--- NOTE | 2023-06-23 09:25 | PC.NURSE ---
PRE-OP INSTRUCTIONS, PLEASE READ CAREFULLY Report to the Outpatient Waiting Room, entrance under the green pavilion located off [facility], at time _0600_ on date _07/23/23_. Planned Procedure Time: _0730_. PACK A SMALL OVERNIGHT BAG AND LEAVE IN THE CAR ALONG WITH YOUR WALKER Time changes happen often and if your time is changed the preop area will call you the afternoon before. - You and your visitor will be asked to self-screen and do not enter if you have any COVID symptoms. - A mask is optional within the hospital at this time. -VISITING HOURS 8AM-8PM Patients may have clear liquids (water, carbonated beverages, clear teas, apple juice) until 3 hours prior to surgery (0430 AM) with a maximum of 20 ounces. - No food from midnight until time of surgery Take the following medications with a SIP of water the morning of surgery: _NASAL SPRAY, CARVEDILOL & TYLENOL IF NEEDED_ DO NOT STOP ANY OF YOUR OTHER PRESCRIPTION MEDICATIONS PRIOR TO SURGERY ?EXCEPT THE FOLLOWING Medications to discontinue per DR. HORNE - _ASPIRIN 7 DAYS PRIOR TO SURGERY, Date to take last dose 07/15/23_ Please no make-up, nail guinean, hairspray, perfume, deodorant, or body powder the day of surgery. No jewelry (including any body piercings) or valuables the day of surgery, leave them at home. Please take a shower or bath the night before, or the morning of, surgery with an antibacterial soap. Wear comfortable, loose fitting clothing. - Jewelry must be removed prior to entering the operating room. Rings and piercings that are not removed may be cut off. - The hospital will not accept responsibility for valuables. - Please leave all valuables, including medications, at home the day of surgery. If you are going home after surgery, a licensed coal tram driver must drive you home. - NO public transportation without another adult if you receive anesthesia. - We recommend that an adult stay with you for 24 hours following discharge. - We also recommend that you do not drive, make important decision, drink alcoholic beverages, or take any drugs that were not prescribed by your health care provider for at least 24 hours after your discharge time. Follow any additional instructions given to you from your surgeon. TOTAL JOINT CLASS 06/27/23 @ [address] [place] [address] ENTRANCE 2 LOWER LEVEL If you or anyone in your household have experienced Covid symptoms in the past week, please notify your surgeon or the nurse liaison at the phone number below for possible testing. Instructions given to _PATIENT_and asked if any additional questions and then verbalized understanding. Patient advised to call surgeon office or pre surgery nurse liaison [phone] if any additional questions.
--- NOTE | 2023-06-23 09:52 | PC.NURSE ---
PRE-OP INSTRUCTIONS, PLEASE READ CAREFULLY Report to the Outpatient Waiting Room, entrance under the green pavilion located off [facility], at time _0600_ on date _07/23/23_. Planned Procedure Time: _0730_. PACK A SMALL OVERNIGHT BAG AND LEAVE IN THE CAR ALONG WITH YOUR WALKER IF YOU HAVE ONE Time changes happen often and if your time is changed the preop area will call you the afternoon before. - You and your visitor will be asked to self-screen and do not enter if you have any COVID symptoms. - A mask is optional within the hospital at this time. -VISITING HOURS 8AM-8PM Patients may have clear liquids (water, carbonated beverages, clear teas, apple juice) until 3 hours prior to surgery (0430 AM) with a maximum of 20 ounces. - No food from midnight until time of surgery Take the following medications with a SIP of water the morning of surgery: _ CARVEDILOL, - TYLENOL IF NEEDED_ DO NOT STOP ANY OF YOUR OTHER PRESCRIPTION MEDICATIONS PRIOR TO SURGERY ?EXCEPT THE FOLLOWING Medications to discontinue per DR. HORNE - _ASPIRIN 7 DAYS PRIOR TO SURGERY, Date to take last dose 07/15/23_ Please no make-up, nail vietnamese, hairspray, perfume, deodorant, or body powder the day of surgery. No jewelry (including any body piercings) or valuables the day of surgery, leave them at home. Please take a shower or bath the night before, or the morning of, surgery with an antibacterial soap. Wear comfortable, loose fitting clothing. - Jewelry must be removed prior to entering the operating room. Rings and piercings that are not removed may be cut off. - The hospital will not accept responsibility for valuables. - Please leave all valuables, including medications, at home the day of surgery. If you are going home after surgery, a licensed water taxi driver must drive you home. - NO public transportation without another adult if you receive anesthesia. - We recommend that an adult stay with you for 24 hours following discharge. - We also recommend that you do not drive, make important decision, drink alcoholic beverages, or take any drugs that were not prescribed by your health care provider for at least 24 hours after your discharge time. Follow any additional instructions given to you from your surgeon. TOTAL JOINT CLASS 07/15/23 @ 10AM, [facility] ENTRANCE 2 - LOWER LEVEL If you or anyone in your household have experienced Covid symptoms in the past week, please notify your surgeon or the nurse liaison at the phone number below for possible testing. Instructions given to _PATIENT_and asked if any additional questions and then verbalized understanding. Patient advised to call surgeon office or pre surgery nurse liaison [phone] if any additional questions.
[2023-07-23] VITALS (14 sets, daily range): BP systolic 141–166; BP diastolic 65–90; PULSE 49–80; RESP 12–24; TEMP 35.7–36.4; O2SAT 94–100; BMI 31.8
--- NOTE | ~2023-07-23 | XR_ITS ---
EXAMINATION: [id number] DATE: 07/23/2023 10:17 INDICATION: Postoperative evaluation following left total knee arthroplasty. TECHNIQUE: Anteroposterior and lateral views of the left knee were obtained. COMPARISON: None. FINDINGS: Left total knee arthroplasty with patellar resurfacing appears well seated and in near anatomic align ment. No fractures identified. Expected postoperative subcutaneous and intra-articular gas. IMPRESSION: 1. Left total knee arthroplasty, negative for postoperative purposes. Reviewed, dictated and finalized at location A.
[2023-07-23] MEDS: LACTATED RINGERS 1,000 ML 30 ML IV CONT ×2 (06:55→10:05)
[2023-07-23] MEDS: ACETAMINOPHEN 500 MG TABLET 1000 MG PO ×4 (07:03→20:14)
[2023-07-23] MEDS: TRANEXAMIC ACID 1,000MG/ISO100 1,000 MG/100 ML BAG 200 MG IVPB (07:03)
--- NOTE | 2023-07-23 07:07 | WPDANESEPPF ---
Anes - Initial Pre Proc Eval Procedure: Operation Date: 07/23/23 07:30 Proposed Procedures p Left Custom Total Knee Arthroplasty - Kumar Bryant MD Date/Time: 07/23/23 07:07 Surgeon: Kumar Bryant MD Pre Op Diagnosis: Prim O A Lt Knee Patient Data Age: 68 Gender: M Height: 1.8 m Weight: 103.8 kg Last Vital Signs Temp 36.6 C 06/23/23 09:24 Pulse 50 L 06/23/23 09:24 Resp 20 06/23/23 09:24 BP 138/72 06/23/23 09:24 Pulse Ox 99 06/23/23 09:24 O2 Del Method Room Air 06/23/23 09:24 Allergies Allergy/AdvReac Type Severity Reaction Status Date / Time No Known Allergies Allergy Verified 07/23/23 06:22 Home Medications Medication Instructions Recorded Confirmed Type aspirin 81 mg tablet,delayed 81 mg PO DAILY 03/02/23 07/23/23 History release (Adult Low Dose Aspirin) irbesartan 300 1 tablet PO DAILY #90 tabs 04/20/23 07/06/23 Rx mg-hydrochlorothiazide 12.5 mg tablet lovastatin 40 mg tablet 80 mg PO DAILY #180 tabs 04/20/23 07/06/23 Rx carvedilol 25 mg tablet 25 mg PO Q12H #180 tabs 05/29/23 07/23/23 Rx pantoprazole 40 mg tablet,delayed 40 mg PO QAM #90 tabs 05/29/23 07/06/23 Rx release acetaminophen 500 mg tablet 500 mg PO QID PRN Pain 06/23/23 07/23/23 History (Tylenol Extra Strength) methylprednisolone 4 mg tablets in See Rx Instructions PO PER PKG DIR 07/06/23 07/06/23 Rx a dose pack (Medrol (Mahesh)) #21 ea Patient hx anesthesia problems: none Family hx anesthesia problems: none Results Review: All pre-operative results and documents have been reviewed as part of the pre-operative evaluation. [facility] Past Medical History Medical History Essential hypertension History of stress test Hyperlipidemia Obstructive sleep apnea syndrome Tear of meniscus of right knee Surgical History Surgical History H/O adenoidectomy H/O shoulder surgery Labrum tear repair History of appendectomy History of tonsillectomy S/P arthroscopic partial medial meniscectomy (~11/21/22) Family History Family History Mother Cerebrovascular accident Father Family history of heart disease in male family member before age 55 Family history of atrial fibrillation Cerebrovascular accident, Onset Age: 91 Sibling Family history of diabetes mellitus in first degree relative Family history of malignant neoplasm of breast in first degree relative Diabetes mellitus Family history of malignant neoplasm of breast Other Hypertension Social History Social History Social History: The patient lives with his . She has is durable power contracts attorney for healthcare. He works for [employer]. He desires to be a full code. Lifelong nonsmoker. He has twin boys. No alcohol or illicit drugs. Smoking status: Never smoker Second hand tobacco smoke exposure: No Additional smoking assessment comments: PT DENIES ALL FORMS OF TOBACCO USE Alcohol intake: current Drinks per week: 7 Alcohol use details: occasional Substance use: never Substance use type: does not use Lack of Transportation: No Lack of Food: Never True Current Housing: Decline to Answer Concerned About Future Housing: Decline to Answer Difficulty Paying Gas/Electric Bills: Decline to Answer Difficulty Paying for Meds: Decline to Answer Currently Unemployed: Decline to Answer Education: Decline to Answer Difficulty w/ Childcare or Family Care: Decline to Answer Living arrangements: with family Occupation/Education: occupation Gender identity (if verbalized by the patient): Male Sexual Orientation (if Verbalized by the Patient): Straight or Heterosexual Spiritual care concerns: No Anes - Eval Final PreProcedure Day of Procedure 07/23/23
--- NOTE | 2023-07-23 07:15 | WPDHPUPDATE1 ---
History and Physical Update Update Date/Time: 07/23/23 07:15 History and Physical has been reviewed, including an updated exam of the patient. There are NO changes in the patient's condition. Risks, benefits, and alternatives have been discussed and questions answered. Patient agrees to proceed with procedure.
--- NOTE | 2023-07-23 07:21 | WPDANESPNB ---
Anes - Peripheral Nerve Block Date/Time: 07/23/23 07:21 I have discussed with the patient/family/POA the placement of a peripheral nerve block for post-operative pain management, including associated risks, benefits, complications, and side effects. Alternative methods of post-operative analgesia were detailed. Questions were solicited and answers provided to the satisfaction of the patient/family/POA. Time-Out: A pre-procedural Time-Out was completed immediately before starting the procedure and confirmed: Patient Identification, Site, Procedure, Patient Position and the Availability of Requisite Equipment. Clinical Indications: Acute post-operative pain management requested by the operative surgeon. Nerve Block Insertion Note Anes-nerve block: adductor canal left Patient position: supine Skin prep: chlorhexidine Needle: 22 gauge, stimulating, insulated echogenic needle. Needle length: 80 mm Technique: ultrasound Injectate: bupivacaine 0.5% with epi 5 mcg/ml (30cc no epi) Observations: tolerated well Complications: none Procedure start time:: 714 Procedure end time:: 722
[2023-07-23] MEDS: ceFAZolin 2 GM/D5W 50 ML 2 GM/50 ML BAG IVPB ×3 (07:41→20:15)
[2023-07-23] MEDS: GENTAMICIN BONE CEMENT REFOBACIN 1 EACH TOPICAL (08:21)
[2023-07-23] MEDS: fentaNYL CITRATE INJ (*CRX) 100 MCG/2 ML VIAL 25 MCG IV PUSH ×7 (10:13→10:52)
--- NOTE | 2023-07-23 10:28 | W.PM.PROC2 ---
Procedure Note - Detailed Date of Procedure 07/23/23 Pre-op Diagnosis Prim O A Lt Knee Post-op Diagnosis Same Procedure Performed Total knee arthroplasty, left knee Surgeon Kumar Bryant MD Nursery School Teacher Supriya Lopez PA-C Anesthesia General and Regional (Subsartorial block.) Findings Excellent bone quality. Mild medial release. Description of Procedure Preoperative antibiotics were given. The limb was prepped and draped in the usual sterile fashion with a well-padded tourniquet high on the thigh. The limb was exsanguinated and the tourniquet inflated to 300 mmHg. A longitudinal incision was created just medial to the patella. A trivector approach to the knee was performed. Arthrotomy was taken down through the joint capsule. No significant releases were initially taken. The femur was exposed and the F1 jig was applied. The coring tool was used to remove the cartilage for the F2 jig to sit flush with the bone. The jig was pinned and the distal cut carefully taken. Caliper measurements confirmed appropriate bony resections according to the preoperative templated plan. The F4 cutting jig for the femur was applied, at the standard rotation. The AP and anterior chamfer cuts were taken. The F5 jig was applied and the posterior chamfer cuts were taken. The tibia was prepared using the T1 jig, after removing cartilage for the jig contact points. Proper alignment was checked with the alignment arsalan. The tibia was cut using the T1u guide. Gap balancing was performed. Gap measurements were taken and the knee was trialed. Excellent alignment and soft tissue balancing was confirmed. The posterior cruciate ligament was recessed along the proximal tibia. The patella was cut for resurfacing. Three lug holes were drilled. Meniscal remnants were removed. The trial components were assembled. Excellent range of motion and proper soft tissue balancing were confirmed throughout the full range of motion. Patellar tracking was excellent. The knee was copiously irrigated periodically throughout the procedure. The real implants were cemented into position. Excess cement was carefully removed. The wound was closed in layers with interrupted #1 Vicryl suture, #2 strata fix suture, 2-0 strata fix suture, 3-0 strata fix suture. Steri-Strips placed on the skin with the knee flexed. Sterile bulky dressing applied. The patient was brought to the recovery room in stable condition. There were no complications. Physician offset assistant press operator, Supriya Lopez PA-C, required for surgery; including patient positioning, draping, tissue retraction, maintaining instrument position, cement removal, wound closure, and dressing placement. Implants Conformis Imprint total knee arthroplasty. Cemented. Cruciate retaining. 7 mm insert. 41 mm oval patella. Estimated Blood Loss -100.0 Drains No Complications No immediate complications Condition Stable Disposition PACU [facility] Billing Surgery - Charge Forward: Surgery Billing
--- NOTE | 2023-07-23 11:05 | PC.NURSE ---
This patient, Richard Spencer, was admitted to [address] [facility] Surg Room 328-01. Patient/family oriented to hospital policies and general routines including ID bracelet, bed and alarms, visiting hours, pain management, procedures, bathroom and other care routines, personal items, smoking policy, room service/diet, and visiting hours.Report from Krystal PAREKH. Information on how to activate the Rapid Response Team has been discussed. Patient/Family are encouraged to report perceived risks to care and to ask questions if they do not understand what they are told or what they should do.
[2023-07-23] MEDS: diphenhydrAMINE HCl INJ 50 MG/ML VIAL 25 MG IV PUSH (11:53)
[2023-07-23] MEDS: oxyCODONE HCL (*CRX) 5 MG TAB IR 10 MG PO (13:16)
[2023-07-23] MEDS: ASPIRIN 81 MG ENTERIC TABLET PO (16:56)
[2023-07-23] MEDS: MELOXICAM 7.5 MG TABLET PO (16:56)
[2023-07-23] MEDS: SENNA/DOCUSATE SODIUM TABLET 2 TAB PO (16:57)
[2023-07-23] MEDS: carvediloL 25 MG TABLET PO (16:57)
[2023-07-24] VITALS: BP 152/78; PULSE 70; RESP 18; TEMP 35.8; O2SAT 97
[2023-07-24] MEDS: oxyCODONE HCL (*CRX) 5 MG TAB IR 10 MG PO (01:24)
[2023-07-24 04:00] VITALS: BP 139/78; PULSE 65; RESP 18; TEMP 35.9; O2SAT 100
[2023-07-24] MEDS: ACETAMINOPHEN 500 MG TABLET 1000 MG PO (05:30)
[2023-07-24] MEDS: ceFAZolin 2 GM/D5W 50 ML 2 GM/50 ML BAG IVPB (05:32)
[2023-07-24 07:27] LABS: Anion Gap 6 mmol/L (8-16); Blood Urea Nitrogen 12 mg/dL (9-20); Calcium 9.5 mg/dL (8.4-10.2); Carbon Dioxide 29 mmol/L (22-30); Chloride 101 mmol/L (98-107); Estimated CRCL calculation 110 ml/min; Estimated Glomerular Filt Rate > 60; Glucose 137 mg/dL (65-110); Sodium 136 mmol/L (137-145)
[2023-07-24 07:31] LABS: Basophils Percent Auto 0.2 % (0.2-1.2); Eosinophils Percent Auto 0.2 % (0-4.4); Hematocrit 36.8 % (42.0-52.0); Hemoglobin 11.9 g/dL (14.0-18.0); Immature Granulocyte Absolute 0.05 K/mm3 (0.00-0.031); Immature Granulocyte Percent A 0.4 % (0-0.5); Lymphocytes Absolute Auto 1.49 K/mm3 (0.9-3.2); Lymphocytes Percent Auto 11.4 % (18.3-44.2); Mean Corpuscular HGB Conc 32.3 g/dl (32-36); Mean Corpuscular Hemoglobin 31.2 pg (26-34); Mean Corpuscular Volume 96.6 fl (80-100); Mean Platelet Volume 11.6 fl (7.4-10.4); Monocytes Absolute Auto 1.2 K/mm3 (0.1-0.6); Monocytes Percent Auto 9.3 % (2.6-8.5); Neutrophils Absolute Auto 10.2 K/mm3 (1.3-6.7); Neutrophils Percent Auto 78.5 % (45.5-73.1); Platelet Count Result 205 k/mm3 (150-375); Red Blood Count 3.81 M/mm3 (4.6-6.20); Red Cell Distribution Width 12.2 % (11.5-14.5)
[2023-07-24 08:00] VITALS: BP 132/69; PULSE 59; RESP 12; TEMP 36; O2SAT 100
[2023-07-24] MEDS: oxyCODONE HCL (*CRX) 5 MG TAB IR PO (09:01)
[2023-07-24] MEDS: hydroCHLOROthiazide 12.5 MG CAPSULE PO (09:02)
[2023-07-24] MEDS: LOVASTATIN 20 MG TABLET 80 MG PO (09:02)
[2023-07-24] MEDS: PANTOPRAZOLE 40 MG TABLET PO (09:02)
[2023-07-24] MEDS: predniSONE 5 MG TABLET PO (09:02)
[2023-07-24 09:03] VITALS: PULSE 88
[2023-07-24] MEDS: MELOXICAM 7.5 MG TABLET PO (09:03)
[2023-07-24] MEDS: carvediloL 25 MG TABLET PO (09:03)
[2023-07-24] MEDS: SENNA/DOCUSATE SODIUM TABLET 2 TAB PO (09:03)
[2023-07-24] MEDS: ASPIRIN 81 MG ENTERIC TABLET PO (09:03)
[2023-07-24] MEDS: IRBESARTAN 150 MG TABLET 300 MG PO (09:03)
[2023-07-24] MEDS: polyethylene glycoL 3350 17 GM POWD.PACK PO (09:03)
--- NOTE | 2023-07-24 09:11 | WPDANESPN ---
Anes - Prog Note Post-Op Date/Time: 07/24/23 09:11 Cardiovascular status: normal Respiratory status: normal Airway patency: baseline Mental status: baseline Post-Op hydration status: normal Vital Signs: Last Vital Signs Temp 36.0 C L 07/24/23 08:00 Pulse 88 07/24/23 09:03 Resp 12 07/24/23 08:00 BP 132/69 07/24/23 08:00 Pulse Ox 100 07/24/23 08:00 O2 Del Method Autopap 07/23/23 22:10 O2 Flow Rate 2 07/23/23 10:45 Pain Score (VAS): 12/05 I/O: Intake & Output 07/23/23 07/24/23 07/24/23 23:59 07:59 15:59 Intake Total 530 400 Balance 530 400 Laboratory Tests 07/24/23 06:37 07/24/23 06:37 07/24/23 06:37 WBC 13.0 H RBC 3.81 L Hgb 11.9 L Hct 36.8 L MCV 96.6 MCH 31.2 MCHC 32.3 RDW 12.2 Plt Count 205 MPV 11.6 H Immature Gran % (Auto) 0.4 Neut % (Auto) 78.5 H Lymph % (Auto) 11.4 L [place] % (Auto) 9.3 H Eos % (Auto) 0.2 Baso % (Auto) 0.2 Lymph # (Auto) 1.49 [place] # (Auto) 1.2 H Eos # (Auto) 0.0 Baso # (Auto) 0.0 Abs Immat Gran (auto) 0.05 H Absolute Neuts (auto) 10.2 H Absolute Nucleated RBC 0.0 Nucleated RBC % 0.0 Sodium 136 L Potassium 4.0 Chloride 101 Carbon Dioxide 29 Anion Gap 6 L BUN 12 D Creatinine 0.70 Estim Creat Clear Calc 110 Estimated GFR > 60 Glucose 137 H Calcium 9.5 Post-procedural complaints: none Patient Feedback: Patient satisfied with anesthetic care.
--- NOTE | 2023-07-24 09:25 | PM.DS ---
DS: Admitting Diagnosis Discharge Date 07/24/23 Admitting Diagnosis OA knee Left DS: Discharge Diagnosis Discharge Diagnosis (1) Status post total left knee replacement: Code(s): Z96.652 - Presence of left artificial knee joint Status: Acute Assessment and Plan: Postop day 1: Left total knee arthroplasty. Patient tolerated procedure well. No complications. Pain manageable with pain medication. No numbness or tingling. We had a lengthy discussion regarding postoperative wound care, limitations, expectations, and exercises. Patient shows good understanding. He has had initial physical therapy and is tolerating it well. DVT prophylaxis: 81 mg baby aspirin b.i.d. for 14 days. Compression socks. Short frequent walks. Pain medication: Percocet. Meloxicam. Prednisone. Patient has followup appointment with Dr. Bryant in 3 weeks. DS: Summary Hospital Course Reason for hospitalization: Total knee arthroplasty Hospital Course: Patient tolerated procedure well. Has had initial PT/OT. Status at Discharge Functional status at discharge: uses cane/walker Overall status at discharge: patient is progressing back to baseline Time Spent with Patient Time attestation: Total time spent providing and/or coordinating discharge services: Exam Narrative: 68 y/o overweight male. Resting comfortably in chair. Alert and oriented x3. No acute distress. Wearing compression socks bilaterally. Dressing dry and intact without drainage. Moderate swelling. No ecchymosis. No erythema. No hematoma. Range of motion limited due to pain. Fires quad. Calf nontender. Neurologic status intact. No varicosities. Distal pulses palpable. DS: Data Data Completed and Pending Labs on day of discharge: Labs from last 24 hours 07/24/23 06:37 WBC 13.0 H RBC 3.81 L Hgb 11.9 L Hct 36.8 L MCV 96.6 MCH 31.2 MCHC 32.3 RDW 12.2 Plt Count 205 MPV 11.6 H Immature Gran % (Auto) 0.4 Neut % (Auto) 78.5 H Lymph % (Auto) 11.4 L [place] % (Auto) 9.3 H Eos % (Auto) 0.2 Baso % (Auto) 0.2 Lymph # (Auto) 1.49 [place] # (Auto) 1.2 H Eos # (Auto) 0.0 Baso # (Auto) 0.0 Abs Immat Gran (auto) 0.05 H Absolute Neuts (auto) 10.2 H Absolute Nucleated RBC 0.0 Nucleated RBC % 0.0 Sodium 136 L Potassium 4.0 Chloride 101 Carbon Dioxide 29 Anion Gap 6 L BUN 12 D Creatinine 0.70 Estim Creat Clear Calc 110 Estimated GFR > 60 Glucose 137 H Calcium 9.5 Discharge Plan Discharge Patient Disposition: Home, Self-Care Discharge Instructions: See green instruction sheets Stand Alone Forms: General Discharge Instructions Follow-up/Referrals: Supriya Lopez PA [Physician Service Manager] - Discharge Medications: New meloxicam 15 mg tablet 15 mg PO DAILY Qty: 30 0RF Rx Instructions: Cut in half. Take 1/2 in morning and 1/2 at night. Take with food. Stop if stomach upset. prednisone 5 mg tablet 5 mg PO DAILY 21 Days Qty: 21 0RF oxycodone-acetaminophen 5-325 mg tablet 1 - 2 tablet PO Q4-6H MDD 6 PRN (Reason: pain) Qty: 30 0RF Continued aspirin [Adult Low Dose Aspirin] 81 mg tablet,delayed release (DR/EC) 81 mg PO DAILY carvedilol 25 mg tablet 25 mg PO Q12H Qty: 180 3RF Rx Instructions: must administer with a meal/food pantoprazole 40 mg tablet,delayed release (DR/EC) 40 mg PO QAM Qty: 90 1RF irbesartan-hydrochlorothiazide 300-12.5 mg tablet 1 tablet PO DAILY Qty: 90 1RF lovastatin 40 mg tablet 80 mg PO DAILY Qty: 180 1RF Held acetaminophen [Tylenol Extra Strength] 500 mg Tablet 500 mg PO QID PRN (Reason: Pain) Hold Instructions: Resume on 08/20/23. Do not take more than 4,000 mg in 24 hours. Pain medication has 325 mg in each pill.
--- NOTE | 2023-07-24 11:13 | PC.NURSE ---
Pt is A&O4 male who has participated and contributed in plan of care. Pt reports pain 6/10 that was treated with appropriate pain medication. Pt has been monitored while here for any changes in status. Pt worked with PT and OT. Pt was cleared by both for discharge. Pt was educated on discharge instructions and follow up. Pt verbalizes understanding of these instructions. Pt IV was removed tip intact, dressing applied, pt tolerated well. Pt was wheeled down to personal vehicle on discharge. Pt belongings were taken to car, by pt .
== END 2023-07-24 11:00 | disposition home or self-care (01) ==
LOC: ANHSURGERY 07:21 → ANH3MEDSUR 11:01
PROVIDERS: Physician Assistant Surgical; PCP Internal Medicine; Visit Provider Orthopaedic Surgery
PROC: (CPT 27447; principal; 2023-07-23 07:30)
DX: M17.12 Unilateral primary osteoarthritis, left knee (principal); G89.18 Other acute postprocedural pain; I10 Essential (primary) hypertension; G47.33 Obstructive sleep apnea (adult) (pediatric); E66.9 Obesity, unspecified; Z68.31 Body mass index [BMI] 31.0-31.9, adult; Z79.82 Long term (current) use of aspirin
CPT/HCPCS: 27446; 64447; 36415; 73560; 80048; 85025; 86850; 86900; 86901; 97110; 97116; 97161; 97165; 97530; 97535; A9270; C1713; C1776; J0171; J0690; J1100; J1200; J1885; J2250; J2270; J2405; J2704; J2795; J3010; J7120; J7512

== ENCOUNTER 2023-09-10 15:14 | Outpatient (CLI) | payer BC, SELFPAY ==
--- NOTE | ~2023-09-10 | US_ITS ---
EXAMINATION: US venous doppler [facility] DATE: 09/10/2023 16:33 INDICATION: Left lower limb pain, swelling and erythema TECHNIQUE: Grayscale ultrasound images without and with compression and Doppler ultrasound images of the left lower extremity veins were obtained. COMPARISON: None. FINDINGS: The visualized portions of left common femoral vein, profunda (deep) femoral vein, femoral vein, popl iteal vein, peroneal veins, posterior tibial veins, gastrocnemius vein and greater saphenous vein out flow are patent. IMPRESSION: 1. No deep venous thrombosis in the left lower limb. Reviewed, dictated and finalized at location A. WALL SHEARER OPERATOR
== END 2023-09-10 15:15 | disposition home or self-care (01) ==
PROVIDERS: PCP Internal Medicine; Visit Provider Orthopaedic Surgery
DX: R60.0 Localized edema (principal)
CPT/HCPCS: 93971

== ENCOUNTER 2024-02-01 09:25 | Outpatient (CLI) | payer BC, SELFPAY ==
--- NOTE | ~2024-02-01 | MR_ITS ---
EXAMINATION: MR lumbar spine wo con DATE: 02/01/2024 10:09 INDICATION: Lumbago. TECHNIQUE: Magnetic resonance imaging (MRI) of the lumbar spine was performed without intravenous con trast. Sequences included sagittal T2-weighted FSE, sagittal T2-weighted FS FSE, sagittal T1-weighted FSE, and axial T2-weighted FSE. COMPARISON: None currently available. FINDINGS: There is 5 degrees dextrocurvature of thoracolumbar spine. There is 3 mm retrolisthesis of L3 on L4 and L4 on L5. There is mild chronic anterior wedging of T12 and L1 vertebral bodies. There i s mildly decreased disc height at L3-L4 and L4-L5 and severely decreased disc height at L5-S1. The di stal spinal cord signal intensity is normal. The conus medullaris is at L1. The following disc levels are specifically discussed: L1-L2: The disc does not extend beyond the endplate margin. There is severe bilateral facet joint ost eoarthritis. There is no neural foraminal stenosis. There is no central canal stenosis. L2-L3: The disc does not extend beyond the endplate margin. There is moderate right and mild left fac et joint osteoarthritis. There is no neural foraminal stenosis. There is no central canal stenosis. L3-L4: The disc is bulging. There is mild bilateral facet joint osteoarthritis. There is mild bilater al neural foraminal stenosis. There is mild central canal stenosis. L4-L5: The disc is bulging and has an annular fissure. There is moderate right and severe left facet joint osteoarthritis. There is moderate right and mild left neural foraminal stenosis. There is mild central canal stenosis. L5-S1: The disc is bulging and has an annular fissure. There is severe bilateral facet joint osteoart hritis. There is moderate right and mild left neural foraminal stenosis. There is mild central canal stenosis. IMPRESSION: 1. Severe lower lumbar spondylosis. Reviewed, dictated and finalized at location A.
== END 2024-02-01 09:26 ==
PROVIDERS: PCP Internal Medicine; Visit Provider Nurse Practitioner Family
DX: M47.896 Other spondylosis, lumbar region (principal)
CPT/HCPCS: 72148

== ENCOUNTER 2024-06-23 08:18 | Outpatient (CLI) | payer OTHER, SELFPAY ==
--- NOTE | ~2024-06-23 | US_ITS ---
Limited Abdominal Sonogram: Real-time sonographic imaging of the right upper quadrant was performed. Clinical History: Abnormal findings of blood chemistry Findings: The liver appears echogenic, with no evidence of mass lesion or bile duct dilatation. Main portal vein demonstrates normal direction of flow. The gallbladder is well distended, and demonstrat es small echogenic gallstones. No definite gallbladder wall thickening. The common bile duct measures 4 mm. The visualized pancreas, aorta, and IVC are unremarkable. Right kidney measures 11.0 cm in le th, without hydronephrosis or renal stone. Impression: Diffuse fatty infiltration of the liver. Cholelithiasis. Reviewed, dictated and finalized at location . Impression: Diffuse fatty infiltration of the liver. Cholelithiasis.
== END 2024-06-23 08:19 ==
PROVIDERS: PCP Internal Medicine; Visit Provider Internal Medicine
DX: R79.89 Other specified abnormal findings of blood chemistry (principal); K76.0 Fatty (change of) liver, not elsewhere classified; K80.20 Calculus of gallbladder without cholecystitis without obstruction
CPT/HCPCS: 76705

== ENCOUNTER 2024-07-27 10:58 | Outpatient (CLI) | payer OTHER, SELFPAY ==
--- NOTE | ~2024-07-27 | CT_ITS ---
EXAMINATION: CT soft tissue neck wo con DATE: 07/27/2024 11:14 INDICATION: Neck pain. TECHNIQUE: Computed tomography (CT) of the neck was performed without intravenous contrast. Automated exposure control and iterative reconstruction technique were employed. The dose-length product was 4 62.17 mGy-cm. COMPARISON: None FINDINGS: There are no pathologically enlarged lymph nodes. There is a mucous retention cyst in left maxillary sinus. There is mild mucosal thickening in the paranasal sinuses. The mastoid air cells are normal. There is an old healed fracture of right clavicle. There is severe cervical spondylosis. IMPRESSION: 1. No specific soft tissue etiology for the patient's symptoms. 2. Severe cervical spondylosis. Reviewed, dictated and finalized at location A.
== END 2024-07-27 10:59 | disposition home or self-care (01) ==
LOC: MICIMG 10:59
PROVIDERS: PCP Internal Medicine; Visit Provider Internal Medicine
DX: M47.892 Other spondylosis, cervical region (principal)
CPT/HCPCS: 70490

== ENCOUNTER 2024-08-29 16:36 | Outpatient (CLI) | payer OTHER, SELFPAY ==
--- NOTE | ~2024-08-29 | XR_ITS ---
Left Knee Technique: AP, lateral, and sunrise views were obtained. Clinical History: Arthroplasty COMPARISON: 09/10/2023 Findings: No fracture or dislocation is seen. Osseous alignment is anatomic. Left knee arthroplasty i s unchanged. Soft tissues are unremarkable. No joint effusion is seen. Impression: Stable left knee arthroplasty. Reviewed, dictated and finalized at location M. PLANT OPERATOR Impression: Stable left knee arthroplasty.
== END 2024-08-29 16:37 | disposition home or self-care (01) ==
PROVIDERS: PCP Orthopaedic Surgery; Visit Provider Orthopaedic Surgery
DX: Z96.652 Presence of left artificial knee joint (principal)
CPT/HCPCS: 73562

== ENCOUNTER 2024-11-09 08:04 | Outpatient (CLI) | payer OTHER, SELFPAY ==
--- NOTE | 2024-11-09 08:41 | ECG_ITS ---
Test Date: 2024-11-09 09:03:52 Measurements Intervals [place] Rate: 67 P: 61 AR: 172 QRS: 54 QRSD: 90 T: 41 QT: 373 QTc: 396 Interpretive Statements SINUS RHYTHM No previous ECG available for comparison Electronically Signed On 11-09-2024 14:28:35 HOSPITAL AIDE by Zane Marquis M.D.
[2024-11-09 09:54] LABS: Hematocrit 37.3 % (42.0-52.0); Hemoglobin 12.5 g/dL (14.0-18.0); Mean Corpuscular HGB Conc 33.5 g/dl (32-36); Mean Corpuscular Hemoglobin 31.8 pg (26-34); Mean Corpuscular Volume 94.9 fl (80-100); Mean Platelet Volume 10.4 fl (7.4-10.4); Platelet Count Result 229 k/mm3 (150-375); Red Blood Count 3.93 M/mm3 (4.6-6.20); Red Cell Distribution Width 11.9 % (11.5-14.5)
[2024-11-09 10:04] LABS: Add Urine Microscopic? NO; Anion Gap 8 mmol/L (4-12); Appearance Urine Clear (Clear); Bilirubin Urine Negative (Negative); Blood Urea Nitrogen 7 mg/dL (9-20); Blood Urine Negative (Negative); Calcium 10.1 mg/dL (8.4-10.2); Carbon Dioxide 28 mmol/L (22-30); Chloride 100 mmol/L (98-107); Color Urine Yellow (Yellow); Estimated Glomerular Filt Rate > 60; Glucose 96 mg/dL (65-110); Glucose Urine UA Negative (Negative); Ketones Urine Negative (Negative); Leukocyte Esterase Ur Negative LEU/UL (Negative); Nitrate Urine Negative (Negative); Potassium 4.1 mmol/L (3.4-5.0); Protein Urine Negative (Negative); Sodium 136 mmol/L (137-145); Specific Grav Ur 1.008 (1.001-1.035); Urobilinogen Urine 0.2 mg/dL (<2.0); pH Urine 7.5 (5.0-9.0)
[2024-11-09 10:16] LABS: Prothrombin Time 13.4 Seconds (11.1-14.7)
[2024-11-09 10:17] LABS: Partial Thromboplastin Time 26.7 Seconds (22.3-36.8)
== END 2024-11-09 08:05 | disposition home or self-care (01) ==
LOC: ANHSURGERY 08:09
PROVIDERS: PCP Internal Medicine; Visit Provider Neurological Surgery
DX: E78.5 Hyperlipidemia, unspecified (principal); M54.16 Radiculopathy, lumbar region; I10 Essential (primary) hypertension
CPT/HCPCS: 36415; 80048; 81003; 85027; 85610; 85730; 93005

== ENCOUNTER 2024-11-23 02:00 | Day surgery (SDC) | payer OTHER, SELFPAY ==
[2024-11-09 08:19] VITALS: BP 114/65; PULSE 70; RESP 16; TEMP 36.8; O2SAT 99; BMI 29.4
--- NOTE | 2024-11-09 08:34 | PC.NURSE ---
Report to the Outpatient Waiting Room, entrance under the green pavilion located off [facility], at time ___0800am____ on date . Planned Procedure Time: _1000am .? Time changes happen often and if your time is changed the preop area will call you the afternoon before. - You and your visitor will be asked to self-screen and do not enter if you have any COVID symptoms. Please call surgeon if you need to reschedule. - A mask is optional within the hospital at this time. Patients may have clear liquids (water, carbonated beverages, clear teas, apple juice) until 3 hours prior to surgery with a maximum of 20 ounces. - No food from midnight until time of surgery and no smoking. This includes no chewing gum, candy or mints.(0700am) Take only the following medications with a SIP of water on the morning of surgery: ___Coreg & Tylenol if needed DO NOT STOP ANY OF YOUR OTHER PRESCRIPTION MEDICATIONS PRIOR TO SURGERY EXCEPT THE FOLLOWING Medications to discontinue per physician Hold Aspirin for [address] Sanchez- Date of last dose is 11/15/24 Hold all Multiple vitamins and supplements for 3 days prior per Anesthesia. Date to take last dose_11/19/24 Hold the Injectible Tirzepitide for 10 days prior- last dose is 11/06/24. Please no make-up, nail wolof, hairspray, perfume, deodorant, or body powder the day of surgery.? No jewelry (including any body piercings) or valuables the day of surgery, leave them at home.? Please take a shower or bath the night before, or the morning of, surgery with an antibacterial soap.? Wear comfortable, loose fitting clothing.? - Jewelry must be removed prior to entering the operating room.? Rings and piercings that are not removed may be cut off. - The hospital will not accept responsibility for valuables.? - Please leave all valuables, including medications, at home the day of surgery. If you are going home after surgery, a licensed armored truck driver must drive you home.? - NO public transportation without another adult if you receive anesthesia. - We recommend that an adult stay with you for 24 hours following discharge. - We also recommend that you do not drive, make important decision, drink alcoholic beverages, or take any drugs that were not prescribed by your health care provider for at least 24 hours after your discharge time. Follow any additional instructions given to you from your surgeon. Telephone instructions given to ___patient and asked if any additional questions and then verbalized understanding. Patient advised to call surgeon office or pre surgery nurse liaison [phone] if any additional questions.
[2024-11-23] VITALS (8 sets, daily range): BP systolic 134–154; BP diastolic 65–89; PULSE 56–92; RESP 12–16; TEMP 36.6–37; O2SAT 97–100
--- NOTE | ~2024-11-23 | XR_ITS ---
EXAMINATION: XR fluoroscopy no charge DATE: 11/23/2024 10:30 SEWER CONTRACTOR INDICATION: L5/S1 HEMILAMINECTOMY . TECHNIQUE: 2 fluoroscopic images of the lumbar spine were obtained during hemilaminectomy, performed by Luda Bradford MD. Fluoroscopy exposure time was 6.8 seconds. Air Kerma 5.2 mGy. DAP 1.03 mGym2. FINDINGS/IMPRESSION: Please refer to the operative note for complete procedural details . Reviewed, dictated and finalized at location K. R CONTRACTOR
--- OUTSIDE RECORDS SUMMARY | 2024-11-23 02:06 | XMS_ITS | Patient Health Summary ---
Author Organization [facility] Address [address] [address] Care Team Providers Care Assistant Women'S Rowing Coach Name Role Phone Unavailable Primary Care Provider Unavailabl e Note from [facility],non-owned Affiliates and Associated Physician Practices is amultiple site organization consisting of ambulatory clinics and hospital sitesin [place], [place], [place] and [place]. This disclosure is being madepursuant to the Care Everywhere program and may not contain all information available regarding this patient. Last updated 18.[facility] Social History Tobacco Use Types Packs/Day Years Used Date Smoking Tobacco: Never Assessed Sex and Gender Information Value Date Recorded Sex Assigned at Not on file Gender Identity Not on file Sexual Orientation Not on file Procedures * DERMATOPATHOLOGY(Performed 07/07/2023) Results * DERMATOPATHOLOGY (07/07/2023 12:00 AM CDT) Case Report Dermatopathology Report ? Case: [id number] ? Authorizing Provider: ??Rodrigue Carlisle MD ?Collected: ? 07/07/2023 12:00 AM ? Ordering Location: ? [facility] DermPath Lab ? Received: ?07/08/2023 07:23 AM ? Pathologist: ? Pauline Del Real MD ? Specimen: ?Skin, left ear ? 3 3:59 PM CDT DERMATOPATHOLOGY LABORATORY Final Diagnosis Specimen A. SKIN, left ear: ULCER WITH SUPERFICIAL DERMAL NECROSIS (L98.499) (see microscopic description) 3 3:59 PM CDT DERMATOPATHOLOGY LABORATORY Clinical History R/O MM vs Hemangioma 3 3:59 PM CDT DERMATOPATHOLOGY LABORATORY Gross Description Specimen A: Received is one formalin filled container labeled with the patient's name and designated left ear. The specimen consists of a shave biopsy measuring 6x5x1 mm. Jar 0. 3 3:59 PM CDT DERMATOPATHOLOGY LABORATORY Microscopic Description Specimen A. SKIN, left ear: There is an ulcer, beneath which there are vascular proliferation, fibroblasts, and an edematous stroma. Bacteria are present in the crust. There is no evidence of epithelial dysplasia or malignancy in multiple deeper sections examined; however, there is minimal cellular epidermis present for evaluation and no dermis. 3 3:59 PM T DERMATOPATHOLOGY LABORATORY Disclaimer An external and internal positive and negative controls are appropriate for the histochemical, immunohistochemical and immunofluorescence stain(s) in this case (if any), except where stated explicitly. The performance characteristics of the stain(s) cited in this report were developed and its performance characteristic determined by the Dermatopathology Laboratory at [facility], directed by Dr. Lily Del Real. These tests need not be, and therefore are not, approved by the [place] Food and Drug Administration. The tests are used for clinical purposes. Billing Codes Specimen Charges Stain Charges 92254 1 3 3:59 PM CDT DERMATOPATHOLOGY LABORATORY Embedded Images 3 3:59 PM CDT DERMATOPATHOLOGY LABORATORY Pathology/Cytolog y TISSUE SPECIMEN FROM SKIN / Unknown 07/07/2023 07/08/2023 7:23 AM CDT Rodrigue Carlisle MD LAB - PATHOLOGY/CYTO LOGY ORDERABLES DERMATOPATHOLOGY LABORATORY [facility] - Department of Dermatology [facility] Specialized Medicine [address] [place] [address], [address] [phone]
--- OUTSIDE RECORDS SUMMARY | 2024-11-23 02:06 | XMS_ITS | Patient Health Record ---
Author Organization [facility] Address [address] [place] [address] Support Name Relationship Address Phone Richard Spencer Guarantor Unknown Reason For Referral No Information Plan Of Treatment No Information
--- OUTSIDE RECORDS SUMMARY | 2024-11-23 02:06 | XMS_ITS | Clinical Summary ---
Author Organization [facility] [address] Address [address] [place] [address] Care Team Providers Care Museum Specialist Name Role Phone Ag Pugh MD Primary Care Provider [phone]- [phone] Allergies No known active allergies Active Problems Problem Noted Date Diagnosed Date Cervicalgia 10/10/2013 Medical History Medical History Date Comments Hx Other Medical High Cholestera l Hx Other Medical Back pain Hx Other Medical 1997 Shoulder Spur Hx Other Medical 2012 Menisus Repair Hypertension Hypertension Social History Tobacco Use Types Packs/Day Years Used Date Smoking Tobacco: Never Assessed Sex and Gender Information Value Date Recorded Sex Assigned at Not on file Legal Sex Male 2:03 AM CHAPTER RELATIONS ADMINISTRATOR Gender Identity Not on file Sexual Orientation Not on file Obstetrics History Last Filed Vital Signs Vital Sign Reading Time Taken Comments Blood Pressure 160/98 10/27/2013 9:29 AM CHAPTER RELATIONS ADMINISTRATOR Pulse 62 10/27/2013 9:29 AM CHAPTER RELATIONS ADMINISTRATOR Temperature - - Respiratory Rate - - Oxygen Saturation - - Inhaled Oxygen Concentration - - Weight 100.7 kg (222 lb) 11/25/2017 8:12 AM CHAPTER RELATIONS ADMINISTRATOR Height 182.9 cm (6') 11/25/2017 8:12 AM CHAPTER RELATIONS ADMINISTRATOR Body Mass Index 30.11 11/25/2017 8:12 AM CHAPTER RELATIONS ADMINISTRATOR Plan of Treatment Not on file Insurance [facility] CHO[employer] PL[employer] Care Teams Museum Specialist Relationship Specialty Start Date End Date Ag Pugh MD [address] [place] [address] PCP - General 10/27/13
--- OUTSIDE RECORDS SUMMARY | 2024-11-23 02:06 | XMS_ITS | Encounter Summary ---
Author Organization [facility] Address [address] [place] [address] Care Team Providers Care Rim Fire Charger Operator Name Role Phone Unavailable Primary Care Provider Unavailabl e Encounter Details Date Type Department Care Team (Late st Contact Info) Description 07/07/2023 Lab Requisition [facility] - DermPath Lab [address] [place] [id number] Rodrigue Carlisle MD [address] [place] [address] Social History Tobacco Use Types Packs/Day Years Used Date Smoking Tobacco: Never Assessed Sex and Gender Information Value Date Recorded Sex Assigned at Not on file Gender Identity Not on file Sexual Orientation Not on file documented as of this encounter Plan of Treatment Not on file documented as of this encounter Procedures Procedure Name Priority Date/Time Associated Diagnosis Comments DERMATOPATHOLOGY Routine 07/07/2023 12:0 0 AM CDT documented in this encounter Results * DERMATOPATHOLOGY (07/07/2023 12:00 AM CDT) Case Report Dermatopathology Report ? Case: [id number] ? Authorizing Provider: ??Rodrigue Carlisel MD ?Collected: ? 07/07/2023 12:00 AM ? Ordering Location: ? [facility] ? Received: ?07/08/2023 07:23 AM [...] evaluation and no dermis. 3 3:59 PM CDT DERMATOPATHOLOGY LABORATORY Disclaimer An external and internal positive and negative controls are appropriate for the histochemical, immunohistochemical and immunofluorescence stain(s) in this case (if any), except where stated explicitly. The performance characteristics of the stain(s) cited in this report were developed and its performance characteristic determined by the Dermatopathology Laboratory at [facility], directed by Dr. Lily Del Real. These tests need not be, and therefore are not, approved by the [place] Food and Drug Administration. The tests are used for clinical purposes. Billing Codes Specimen Charges Stain Charges 09760 1 3 3:59 PM CDT DERMATOPATHOLOGY LABORATORY Embedded Images 3 3:59 PM CDT DERMATOPATHOLOGY LABORATORY Pathology/Cytolog y TISSUE SPECIMEN FROM SKIN / Unknown 07/07/2023 07/08/2023 7:23 AM CDT Rodrigue Carlisle MD LAB - PATHOLOGY/CYTO LOGY ORDERABLES DERMATOPATHOLOGY LABORATORY [facility] - Department of Dermatology [facility] Medicine [address] [place] [address], [address] [phone] documented in this encounter Visit Diagnoses Not on filedocumented in this encounter
--- OUTSIDE RECORDS SUMMARY | 2024-11-23 02:06 | XMS_ITS | Referral Summary ---
Author Organization [facility] Address [address] [place] [address] Care Team Providers Care Coal Hauler Name Role Phone Unavailable Primary Care Provider Unavailabl e Source Comments [facility],non-owned Affiliates and Associated Physician Practices is amultiple site organization consisting of ambulatory clinics and hospital sitesin [place], [place], [place] and [place]. This disclosure is being madepursuant to the Care Everywhere program and may not contain all information available regarding this patient. Last updated 18.[facility] Social History Tobacco Use Types Packs/Day Years Used Date Smoking Tobacco: Never Assessed Sex and Gender Information Value Date Recorded Sex Assigned at Not on file Gender Identity Not on file Sexual Orientation Not on file Plan of Treatment Not on file
--- OUTSIDE RECORDS SUMMARY | 2024-11-23 02:06 | XMS_ITS | Clinical Summary ---
Author Organization [facility] Address [address] [place] [address] Care Team Providers Care Propeller Tester Name Role Phone Unavailable Primary Care Provider Unavailabl e Source Comments [facility],non-owned Affiliates and Associated Physician Practices is amultiple site organization consisting of ambulatory clinics and hospital sitesin [place], [place], [place] and [place]. This disclosure is being madepursuant to the Care Everywhere program and may not contain all information available regarding this patient. Last updated 18.[facility] Social History Tobacco Use Types Packs/Day Years Used Date Smoking Tobacco: Never Assessed Sex and Gender Information Value Date Recorded Sex Assigned at Not on file Gender Identity Not on file Sexual Orientation Not on file Plan of Treatment Health Maintenance Due Date Last Done Comments COLOGUARD (AGES 45-75) - COL ON CA SCREENING 1957 COLON MONITORING 1957 COLONOSCOPY - COLON CA SCREENING 1957 CT COLONOGRAPHY - COLON CA SCREENING 1955 Colorectal Cancer Screening 1957 FIT - COLON CA SCREENING 1957 FLEX SIG - COLON CA SCREENING 1957 LIPID TESTING 1957 HEPATITIS C SCREENING 01/11/1975 DTAP/TDAP/TD VACCINES (1 - Tdap) 01/16/1976 PNEUMOCOCCAL VACCINE 50+ (1 of 1 - PCV) 2007 ZOSTER VACCINE (1 of 2) 2007 COVID-19 VACCINE ( - 2023-2 5 season) 2024 INFLUENZA VACCINE (#1) 2024 DEPRESSION SCREENING 10/26/2024 Respiratory Syncytial Virus (RSV) Vaccine Pt: or over 60 yrs (1 - 1-dose 75+ series) 01/16/2032 HEPATITIS B VACCINE Aged Out No longe r eligible based on patient's age to complete this topic HIB VACCINE Aged Out No longer eligi ble based on patient's age to complete this topic HPV VACCINE Aged Out No longer eligi ble based on patient's age to complete this topic MENINGOCOCCAL (Group B) VACCINE Aged Out No longer eligible based on patient's age to complete this topic MENINGOCOCCAL VACCINE Aged Out No andrade sara eligible based on patient's age to complete this topic
--- OUTSIDE RECORDS SUMMARY | 2024-11-23 02:06 | XMS_ITS ---
Author Organization [facility] Address [address] [place] [address] Care Team Providers Care Imaging Administrator Name Role Phone zzzzMigration, zzzzProvider Unavailable Unav ailable REASON FOR VISIT EMR-David Encounters Encounter Location Date Provider Diagnosis [facility] [address] [place] [address] 08/16/2023 zzzzProvider zzzzMigration Plan Of Treatment No Information Progress Notes * Richard SPENCERDOB:[birth year] (69 yo F)Acc No.[id number]:08/16/2023 Patient:?YUDI Richard :1955???Age:68 Y???Sex:Female Address:[address] [place] [address] [address], [facility] [address] Subjective: * Chief Complaints: * ???EMR-David * Medical History:? * Surgical History:? * Hospitalization/Major Diagno stic Procedure:? * Medications:? Objective: * Vitals:? * Physical Examination:? Assessment: Plan: * Treatment: * Procedure Codes:? * * Date:?
--- OUTSIDE RECORDS SUMMARY | 2024-11-23 02:06 | XMS_ITS | Clinical Summary ---
Author Organization [facility] Address [address] [place] [address]. [place], [place] [address] [place] [address] Care Team Providers Care Merchandising Representative Name Role Phone Ag Pugh MD Primary Care Provider [phone] Social History Tobacco Use Types Packs/Day Years Used Date Smoking Tobacco: Never Assessed Sex and Gender Information Value Date Recorded Sex Assigned at Not on file Legal Sex Male 9:21 AM PHYSIOLOGIST Gender Identity Not on file Sexual Orientation Not on file Plan of Treatment Health Maintenance Due Date Last Done Comments Colorectal Cancer Screening Colonoscopy (10 Years) 1957 Hepatitis C 1975 DTaP, Tdap and Td Vaccines ( 1 - Tdap) 01/16/1976 Zoster Vaccines (1 of 2) 2007 Pneumococcal Vaccine: 65+ Years (1 of 1 - PCV) 2022 COVID-19 Vaccine (3 - 2023-2 5 season) 2024 01/05/2021, 12/08/2020 Influenza Adult (#1) 2024 RSV Immunization or 60+ Years (1 - 1-dose 75+ series) 01/16/2032 Meningococcal B Vaccine Aged Out No l onger eligible based on patient's age to complete this topic Meningococcal Vaccine Aged Out No andrade sara eligible based on patient's age to complete this topic RSV Immunizations Under 20 Months Aged Out No longer eligible b ased on patient's age to complete this topic Insurance [facility] Care Teams Merchandising Representative Relationship Specialty Start Date End Date Ag Pugh MD [address] [place] [address] PCP - General INTERNAL MEDICINE 09/04/21
--- OUTSIDE RECORDS SUMMARY | 2024-11-23 02:06 | XMS_ITS ---
Author Organization [facility] Address [address] [place] [address] Care Team Providers Care Photographic Technician Name Role Phone zzzzMigration, zzzzProvider Unavailable Unav ailable REASON FOR VISIT EMR-David Encounters Encounter Location Date Provider Diagnosis [facility] [address] [place] [address] 08/15/2023 zzzzProvider zzzzMigration Plan Of Treatment No Information Progress Notes * Richard SPENCERDOB:[birth year] (69 yo F)Acc No.[id number]:08/15/2023 Patient:?YUDI Richard :1955???Age:68 Y???Sex:Female Address:[address] [place] [address] [address], [facility] [address] Subjective: * Chief Complaints: * ???EMR-David * Medical History:? * Surgical History:? * Hospitalization/Major Diagno stic Procedure:? * Medications:? Objective: * Vitals:? * Physical Examination:? Assessment: Plan: * Treatment: * Procedure Codes:? * * Date:?
--- OUTSIDE RECORDS SUMMARY | 2024-11-23 02:06 | XMS_ITS | Referral Summary ---
Author Organization [facility] [address] Address [address] [place] [address] Care Team Providers Care Equine Science Instructor Name Role Phone Ag Pugh MD Primary Care Provider [phone] Allergies No known active allergies Active Problems Problem Noted Date Diagnosed Date Cervicalgia 10/10/2013 Social History Tobacco Use Types Packs/Day Years Used Date Smoking Tobacco: Never Assessed Sex and Gender Information Value Date Recorded Sex Assigned at Not on file Legal Sex Male 2:03 AM EMPLOYEE BENEFITS DIRECTOR Gender Identity Not on file Sexual Orientation Not on file Last Filed Vital Signs Vital Sign Reading Time Taken Comments Blood Pressure 160/98 10/27/2013 9:29 AM EMPLOYEE BENEFITS DIRECTOR Pulse 62 10/27/2013 9:29 AM EMPLOYEE BENEFITS DIRECTOR Temperature - - Respiratory Rate - - Oxygen Saturation - - Inhaled Oxygen Concentration - - Weight 100.7 kg (222 lb) 11/25/2017 8:12 AM EMPLOYEE BENEFITS DIRECTOR Height 182.9 cm (6') 11/25/2017 8:12 AM EMPLOYEE BENEFITS DIRECTOR Body Mass Index 30.11 11/25/2017 8:12 AM EMPLOYEE BENEFITS DIRECTOR Plan of Treatment Not on file Insurance [facility] CHOICE PLUS Care Teams Equine Science Instructor Relationship Specialty Start Date End Date Ag Pugh MD [address] [facility] [address] [place] [address] PCP - General 10/27/13
--- OUTSIDE RECORDS SUMMARY | 2024-11-23 02:06 | XMS_ITS | Data Portability ---
Author Organization [employer], [facility] Address [address] [address] Assessment No assessment recorded. Plan of Treatment Reminders Order Date Submit Date Provider Last Modified By Organization Details Last Modified Time Details Appointments None record ed. Lab None record ed. Referral None record ed. Procedures None record ed. Surgeries None record ed. Imaging None record ed. Medication Orders None record ed. Patient TargetsNo targets recorded. Patient InstructionsNo instructions recorded. Reason for Referral None Reported. Results Created Date Observation Date Name Description Value Unit Range Abnormal Flag Note LastModifiedBy Organization Detail LastModifiedTime 08/12/20 22 06/02/2022 XR, knee No observ ation record ed. [facility] Not Available 2021 10:33:25 08/12/2007/28/2022 XR, knee No observ ation record ed. [facility] Not Available 2021 10:33:25 Result Notes None recorded. Problems No Known Problems Procedures Surgical History None recorded. Imaging Results Imaging Date Name Status LastModified by Organiz ation Details LastModified Time 06/02/2022 XR, knee completed [facility] Information no t available 08/12/2022 10:33:25 07/28/2022 XR, knee completed [facility] Information no t available 08/12/2022 10:33:25 Procedure Notes None recorded. Medical Equipment None Reported. Allergies No known drug allergies Medications Name Sig Start Date Stop Date Status Note LastModified by Organization Details LastModified Time carvedilol 25 mg tablet TAKE 1 TABLET BY MOUTH EVERY 12 HOURS. MUST ADMINISTER WITH MEAL/FOOD active Not Available Not Available No t Available lovastatin 40 mg tablet TAKE 2 TABLETS BY MOUTH DAILY active Not Available Not Available Not Available betamethason e, augmented 0.05 % topical cream APPLY TOPICALLY TO THE AFFECTED AREA TWICE DAILY UNTIL GONE. RUB IN WELL active Not Available Not Available No t Available terbinafine HCl 250 mg tablet TAKE 1 TABLET BY MOUTH EVERY DAY active Not Available Not Available No t Available irbesartan 300 mg-hydrochlo rothiazide 12.5 mg tablet TAKE 1 TABLET BY MOUTH DAILY active Not Available Not Available Not Available Vitals Date Recorded Body height Body mass index (BMI) Body weight Heart rate Systolic blood pressure Diastolic blood pressure Provider Name and Address Organization Details Last Updated DateTime 2 182.88 cm 30.5 kg/m2 045170. 28 g 53 /min 147 mm[Hg] 73 mm[Hg] Piyush Mayenetienne [facility] [facility] 12:[facility] Social History Question Answer Notes LastModified by Organizat ion Details LastModified Time Tobacco Smoking Status Never Smoker Piyush Guetienne [facility] 08/11/2022 12:08:23 What Is Your Level Of Alcohol Consumption? Occasional Information not available 08/11/2022 Are You Currently Employed? Yes Information not available 08/11/2022 Which Of Your Hands Is Dominant? Right Information not available 08/11/2022 What Is Your Relationship Status? Information not available 08/11/2022 Sex: Unknown Functional Status Question Answer Note LastModified by Organization D etails LastModified Time What is your exercise level? Moderate golf Information not available 08/11/2022 Mental Status None recorded. Family History Relationship Description Onset Age of this Age Resolved Age Notes LastModified by Organization Details LastModified Time Father Arthritis Not available 08/11/2022 12:07:39 Father Heart disease Not available 2021 12:07:52 Father Hypercholest erolemia Not available 2021 12:08:01 Father Hypertensive disorder Not available 2021 12:08:07 Mother Heart disease Not available 2021 12:07:52 Medical History Condition Response Other Cancer N HIV or AIDS N Coronary Artery Disease N Gout N Kidney Stones N Hyperthyroidism N Breast Cancer N Head Trauma/Injury N Hernia N Lung Cancer N Hypothyroidism N Lung Disease N Depression N COPD N Blood Clots N Pacemaker N Parkinson's N Anxiety Disorder N Arthritis Y Alcohol / Substance Abuse N Kidney Cancer N Cancer N Melanoma N Stroke N Leg or Foot Ulcers N Neck Injury N High Cholesterol Y Skin Cancer N Liver Disease N Rheumatoid Arthritis N Fibromyalgia N Headaches N Concussion N Kidney Disease N Heart Problems N Scoliosis N Chronic use of Pain Medication N Prostate Cancer N Migraines N Thyroid Problems N Alzheimers N Autoimmune Disorder N Anemia N Multiple Sclerosis N Tendon Tear N Ulcers N Heart Attack ([place]) N Osteopenia N Diabetes N Bleeding Disorder N Seizures/Epilepsy N Cardiac Stent N Tuberculosis N A-FIB N Lymphoma N Urinary Tract Infection N Back Problems N Diverticulitis N Asthma N Lupus N Peripheral Vascular Disease N Sleep Disorder N GERD/Reflux N Hepatitis N Aneurysm N Thyroid Cancer N Heart Disease N Pulmonary Embolism N Hypertension Y Osteoporosis N Past Encounters Encounter ID Performer Location Encounter Start Date Encounter Closed Date Diagnosis/Indication Diagnosis SNOMED-CT Code Diagnosis ICD10 Code Diagnosis Note [id number] [facility] [address] [facility] [address] [facility] [place] [address] 08/11/2022 11:39:37 08/12/2022 08:15:09 Health Concerns Section Related Observation LastModified by Organization Detai ls LastModified Time None Recorded Concern Status LastModified by Organization Details LastModified Time None Recorded Advance Directives Directive None Recorded Payers Encounter Date Sequence Insurance Name Policy Number Policy Collins Covered Member ID Collins Member ID Guarantor Name 08/11/2022 1 [place] [id number] Richard Spencer [id number] Richard Spencer
[2024-11-23] MEDS: LACTATED RINGERS 1,000 ML 30 ML IV CONT ×2 (08:30→12:11)
--- NOTE | 2024-11-23 09:58 | WPDHPUPDATE1 ---
History and Physical Update Update Date/Time: 11/23/24 09:58 History and Physical has been reviewed, including an updated exam of the patient. There are NO changes in the patient's condition. Risks, benefits, and alternatives have been discussed and questions answered. Patient agrees to proceed with procedure.
--- NOTE | 2024-11-23 09:59 | P.HP_ITS ---
H&P: HPI History of Present Illness Date/Time: 11/23/24 09:59 Chief Complaint: left leg pain Narrative: Mr. Spencer is a 69-year-old male with history of hypertension hyperlipidemia who was referred by [facility] for evaluation of left leg pain. He has had this in the past but had recurrence of symptoms about 15 months ago after having a left knee replacement. He describes pain that radiates down the back of the leg to the ankle which is fairly constant. This worsens with standing for a prolonged period of time and can improve somewhat with Tylenol and ice. He has had physical therapy earlier this year without improvement. He had 2 epidural steroid injections over the summer at L5-S1 which were helpful for about a day. He was offered a trial of spinal cord stimulation but wished to discuss other treatment options, hence his presentation here. He denies any weakness in the leg. He denies any right-sided symptoms or significant lower back pain. He is otherwise healthy. He does take an aspirin for prevention purposes. He works in finance at a computer based job. 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 She has is durable power family law attorney for healthcare. He works for [employer] He desires to be a full code. Lifelong nonsmoker. He has twin boys. No alcohol or illicit drugs. Smoking status: Never smoker Second hand tobacco smoke exposure: No Additional smoking assessment comments: PT DENIES ALL FORMS OF TOBACCO USE Alcohol intake: current Drinks per week: 5 Alcohol use details: occasional Substance use: never Substance use type: does not use Do You Feel Safe in your Home?: Yes Lack of Transportation: No Lack of Food: Never True Current Housing: I Have Housing Concerned About Future Housing: No Difficulty Paying Gas/Electric Bills: No Difficulty Paying for Meds: No Currently Unemployed: No Education: Bachelor's Degree Difficulty w/ Childcare or Family Care: No Living arrangements: with family Occupation/Education: occupation Gender identity (if verbalized by the patient): Male Sexual Orientation (if Verbalized by the Patient): Straight or Heterosexual Spiritual care concerns: No Meds Home Medications and Allergies Home Medications ?Medication ?Instructions ?Recorded ?Confirmed ?Type aspirin 81 mg tablet,delayed 81 mg PO DAILY 03/02/23 11/23/24 History release (Adult Low Dose Aspirin) acetaminophen 500 mg tablet 500 mg PO QID PRN Pain 06/23/23 11/09/24 History (Tylenol Extra Strength) lovastatin 40 mg tablet 80 mg (2 x 40 mg) PO DAILY #180 01/18/24 11/23/24 Rx tabs carvedilol 25 mg tablet 25 mg PO Q12H #180 tabs 05/25/24 11/23/24 Rx irbesartan 300 1 tablet PO DAILY #90 tabs 10/12/24 11/23/24 Rx mg-hydrochlorothiazide 12.5 mg tablet multivitamin (Daily Multi-Vitamin 1 tablet PO DAILY 11/09/24 11/23/24 History tablet) tirzepatide 12.5 mg/0.5 mL 12.5 mg (0.5 mL) subcut WEEKLY #2 11/18/24 11/23/24 Rx subcutaneous pen injector mL Allergies Allergy/AdvReac Type Severity Reaction Status Date / Time No Known Allergies Allergy Verified 11/23/24 08:19 Vital Signs Vital Signs - 24 hr 11/23/24 08:09 Temperature 97.8 F Pulse Rate 56 L Respiratory Rate 16 Blood Pressure 145/74 H Pulse Oximetry 98 Oxygen Delivery Room Air Exam Narrative: Positive straight leg raise Worsened left leg pain with FAIR and PHIL Unless otherwise stated above, the patient's physical exam is as follows: General: -Well developed and well nourished. No a cute distress. Cooperative with exam. Mental status: -Awake and oriented to person, place, an d time. Affect is normal. -Fund of knowledge appropriate -Recent and remote memory are intact -Attention span and concentration appear normal -Language function is normal -There is no evidence of aphasia in conv ersational speech. Cranial nerves: -CN II: Visual huerta full to bedside co nfrontation -CN III, IV, : Pupils equal, round, an d reactive to light; extraocular movements, no ptosis, no nystagmus -CN V: Facial sensation intact in V1 thr ough V3 distributions -CN VII: Face symmetric -CN VIII: Hearing intact to conversation al speech -CN IX, X: Palate elevates symmetrically ; normal phonation -CN XI: Symmetric full strength of fernandes ocleidomastoid and trapezius muscles -CN XII: Tongue protrudes midline Integumentary: -No obvious skin lesions or masses Motor: -Muscle tone normal without spasticity o f flaccidity. No atrophy. No fasciculations. -No pronator drift -Right upper extremity: deltoid 5/5, bic eps 5/5, triceps 5/5, wrist extensors 5/5, wrist flexors 5/5, intrinsics 5/5 -Left upper extremity: deltoid 5/5, jj ps 5/5, triceps 5/5, wrist extensors 5/5, wrist flexors 5/5, intrinsics 5/5 -Right lower extremity: iliopsoas 5/5, q uadriceps 5/5, hamstrings 5/5, tibialis anterior 5/5, gastroc-soleus 5/5, EHL 5/5 -Left lower extremity: iliopsoas 5/5, qu adriceps 5/5, hamstrings 5/5, tibialis anterior 5/5, gastroc-soleus 5/5, EHL 5/5 Sensory: -Intact to light touch throughout -Normal proprioception throughout Reflexes: -1-2+ DTR's throughout -No Pineda's, clonus, or Babinski bilat erally Musculoskeletal: -Lumbar spine: no tenderness to palpatio n, no pain, and normal lumbosacral spine movements -[id number] test negative -Hip: normal range of motion, no crepitu s bilaterally. No pain reproduced on PHIL or FAIR testing bilaterally -Knee: no instability, subluxation or la xity, and no crepitus bilaterally I personally reviewed the MRI lumbar spine which shows degenerative disc disease most pronounced at L5-S1 with severe left lateral recess stenosis from a combi nation of ligamentum flavum hypertrophy, epidural lipomatosis, and a small disc bulge Assessment and Plan Assessment and plan (1) Left lumbar radiculopathy: Code(s): M54.16 - Radiculopathy, lumbar region Status: Acute Plan Mr. Spencer is a 69-year-old male with a 15-month history of left leg pain following an S1 dermatome which has been resistant to physical therapy and epidural steroid injections. He is neurologically intact on physical exam. MRI lumbar spine shows severe degenerative disc disease at L5-S1 with severe left lateral recess stenosis from combination of ligamentum flavum hypertrophy, ep idural lipomatosis, and a small disc bulge. I reviewed the images with him today in clinic. I have offered him surgery in the form of a left L5-S1 hemilaminectomy and possible microdiskectomy. We discussed surgery in detail including risks, expected recovery, and restrictions after surgery. We also discussed treatment options of gabapentin versus spinal cord stimulator. I would not recommend a stimulator at this time as I think that there is another surgical solution to fix the nerve compression directly. He expressed understanding of this and would like to proceed with surgery as discussed.
--- NOTE | 2024-11-23 10:20 | WPDANESEPPF ---
Anes - Initial Pre Proc Eval Procedure: Operation Date: 11/23/24 10:00 Proposed Procedures p Left L5, S1 Hemilaminectomy, Possible Microdiscectomy - Luda Bradford MD Date/Time: 11/23/24 10:20 Surgeon: Luda Bradford MD Pre Op Diagnosis: left lumbar radiculopathy Patient Data Age: 69 Gender: M Height: 1.83 m Weight: 97.2 kg Last Vital Signs Temp 97.8 F 11/23/24 08:09 Pulse 56 L 11/23/24 08:09 Resp 16 11/23/24 08:09 BP 145/74 H 11/23/24 08:09 Pulse Ox 98 11/23/24 08:09 O2 Del Method Room Air 11/23/24 08:09 Allergies Allergy/AdvReac Type Severity Reaction Status Date / Time No Known Allergies Allergy Verified 11/23/24 08:19 Home Medications ?Medication ?Instructions ?Recorded ?Confirmed ?Type aspirin 81 mg tablet,delayed 81 mg PO DAILY 03/02/23 11/23/24 History release (Adult Low Dose Aspirin) acetaminophen 500 mg tablet 500 mg PO QID PRN Pain 06/23/23 11/09/24 History (Tylenol Extra Strength) lovastatin 40 mg tablet 80 mg (2 x 40 mg) PO DAILY #180 01/18/24 11/23/24 Rx tabs carvedilol 25 mg tablet 25 mg PO Q12H #180 tabs 05/25/24 11/23/24 Rx irbesartan 300 1 tablet PO DAILY #90 tabs 10/12/24 11/23/24 Rx mg-hydrochlorothiazide 12.5 mg tablet multivitamin (Daily Multi-Vitamin 1 tablet PO DAILY 11/09/24 11/23/24 History tablet) tirzepatide 12.5 mg/0.5 mL 12.5 mg (0.5 mL) subcut WEEKLY #2 11/18/24 11/23/24 Rx subcutaneous pen injector mL Patient hx anesthesia problems: none Family hx anesthesia problems: none Results Review: All pre-operative results and documents have been reviewed as part of the pre-operative evaluation. [facility] Past Medical History Medical History Essential hypertension History of stress test Hyperlipidemia Obstructive sleep apnea syndrome Tear of meniscus of right knee Surgical History Surgical History H/O adenoidectomy H/O shoulder surgery Labrum tear repair History of appendectomy History of tonsillectomy S/P arthroscopic partial medial meniscectomy (~11/21/22) Status post total left knee replacement (~07/23/23) Family History Family History Mother Cerebrovascular accident Father Family history of heart disease in male family member before age 55 Family history of atrial fibrillation Cerebrovascular accident, Onset Age: 91 Sibling Family history of diabetes mellitus in first degree relative Family history of malignant neoplasm of breast in first degree relative Diabetes mellitus Family history of malignant neoplasm of breast Other Hypertension Social History Social History Social History: The patient lives with his . She has is durable power regional merchandising manager for healthcare. He works for [employer]. He desires to be a full code. Lifelong nonsmoker. He has twin boys. No alcohol or illicit drugs. Smoking status: Never smoker Second hand tobacco smoke exposure: No Additional smoking assessment comments: PT DENIES ALL FORMS OF TOBACCO USE Alcohol intake: current Drinks per week: 5 Alcohol use details: occasional Substance use: never Substance use type: does not use Do You Feel Safe in your Home?: Yes Lack of Transportation: No Lack of Food: Never True Current Housing: I Have Housing Concerned About Future Housing: No Difficulty Paying Gas/Electric Bills: No Difficulty Paying for Meds: No Currently Unemployed: No Education: Bachelor's Degree Difficulty w/ Childcare or Family Care: No Living arrangements: with family Occupation/Education: occupation Gender identity (if verbalized by the patient): Male Sexual Orientation (if Verbalized by the Patient): Straight or Heterosexual Spiritual care concerns: No Anes - Eval Final PreProcedure Day of Procedure 11/23/24 10:20 Patient weight: obese Heart: regular rate and rhythm Lungs: clear to auscultation Airway: Mallampati scale class II Neurological: alert and oriented Last oral intake: >/= 8 hours ASA classification: III Emergent: no Anesthetic plan: proceed Anesthesia type and monitoring: general ETT and standard monitoring Results Review: All pre-operative results and documents have been reviewed as part of the pre-operative evaluation. Informed Consent: The patient's anesthetic plan and its attendant risks and benefits were discussed with the patient/family/POA. Questions were solicited and answers provided to the satisfaction of the patient/family/POA.
[2024-11-23] MEDS: ceFAZolin 2 GM/D5W 50 ML 2 GM/50 ML BAG IVPB (10:26)
[2024-11-23] MEDS: BUPIVACAINE/EPINEPHRINE 0.5% 50 ML VIAL 30 ML INFILTRATE (11:15)
--- NOTE | 2024-11-23 12:05 | P.OPB_ITS ---
Procedure Note - Brief Procedure Note - Brief Date of procedure: 11/23/24 left lumbar radiculopathy Post-op diagnosis: Same Procedure performed: Left L5-S1 hemilaminectomy Surgeon: Luda Bradford MD Executive Services Administrator: Elvira Anesthesia: GETA Findings: Successful lateral recess decompression without complication. No significant disc herniation noted at this level Estimated blood loss (mL): 10 Drains: No Packing: No Pathology: None sent Complications: No immediate complications Condition: Stable Disposition: PACU
--- NOTE | 2024-11-23 12:12 | W.PM.PROC2 ---
Procedure Note - Detailed Date of Procedure 11/23/24 Pre-op Diagnosis left lumbar radiculopathy Post-op Diagnosis Same Procedure Performed 1. Left L5-S1 hemilaminectomy 2. Use of C-arm for fluoroscopy 3. Use of microscope for microsurgical dissection Surgeon Luda Bradford MD Authorization Nurse Elvira Anesthesia General Description of Procedure The patient was brought to the operating room, and general anesthesia was induced. The patient was placed prone on the Andriy frame, and all pressure points were padded. Compression devices were placed on the patient's calves. The skin was cleaned with alcohol. The C-arm was brought onto the field to localize the appropriate disc space and assist with incisional planning. The previous incision was marked. The area was prepped and draped in usual sterile fashion. A time out was conducted, and pre-operative antibiotics were administered. Local anesthesia was injected into the planned incision. A midline skin incision was opened with a 10-blade scalpel, and dissection was carried down with the monopolar cautery to open the fascia on the left side of midline. Once the spinous processes were located, a subperiosteal dissection was performed to expose the lamina on the left, taking care to avoid the facet. A self-retaining retractor was placed. The C-arm was brought in to confirm the correct level. The microscope was draped and brought into the field for microsurgical dissection. The high-speed drill was used to thin the left L5 lamina to the ligamentum flavum. A currette was used to separate the ligament from the bone which was then removed with the Kerrison. The ligamentum was then elevated with a currette and removed. A kerrison was passed along the traversing nerve root and followed distally to remove bone into the foramen. Epidural fat was gently sucked away from the ventral epidural space. No significant disc herniation was noted, so a microdiskectomy was not performed. A Woodsen was used to verify adequate decompression at the cranial and caudal aspects of the decompression as well as into the foramen. Hemostasis was ensured with the bipolar, surgiflo, and cottonoids, and the area was copiously irrigated. No evidence of CSF leak was noted. The fascia was closed with 0-Vicryl in an interrupted fashion. The soft tissue was again copiously irrigated. The dermis was closed with 2-0 then 3-0 interrupted Vicryl. The skin was closed with 4-0 monocryl. Skin glue was applied. The patient was returned supine on the stretcher, extubated, and transferred to PACU without incident. Billing codes: 54946, 44162 Estimated Blood Loss 10 Drains No Packing No Pathology None sent Complications No immediate complications Condition Stable Disposition PACU [facility] Billing Surgery - Charge Forward: Surgery Billing
[2024-11-23] MEDS: fentaNYL CITRATE INJ (*CRX) 100 MCG/2 ML VIAL 25 MCG IV PUSH (12:40)
[2024-11-23] MEDS: oxyCODONE HCL (*CRX) 5 MG TAB IR PO (13:33)
== END 2024-11-23 14:05 | disposition home or self-care (01) ==
PROVIDERS: PCP Internal Medicine; Visit Provider Neurological Surgery
PROC: (CPT 63030; principal; 2024-11-23 10:00)
DX: M54.16 Radiculopathy, lumbar region (principal); E78.5 Hyperlipidemia, unspecified; I10 Essential (primary) hypertension; G47.33 Obstructive sleep apnea (adult) (pediatric); E66.9 Obesity, unspecified; Z68.29 Body mass index [BMI] 29.0-29.9, adult; Z79.82 Long term (current) use of aspirin; Z79.85 Long-term (current) use of injectable non-insulin antidiabetic drugs; Z98.890 Other specified postprocedural states; Z80.3 Family history of malignant neoplasm of breast; Z82.49 Family history of ischemic heart disease and other diseases of the circulatory system
CPT/HCPCS: 63030; 99199; A9270; J0690; J1100; J1171; J1596; J2003; J2250; J2371; J2405; J2704; J3010; J7120

== ENCOUNTER 2025-04-18 06:48 | Outpatient (CLI) | payer OTHER, SELFPAY ==
--- NOTE | ~2025-04-18 | MR_ITS ---
EXAMINATION: MR lumbar spine wo/w con DATE: 04/18/2025 07:57 INDICATION: Post procedural states the lumbar spine presenting with back pain and radiculopathy. TECHNIQUE: Magnetic resonance imaging (MRI) of the lumbar spine was performed without and with 20 mL Multihance intravenous contrast. Sequences included sagittal T2-weighted FSE, sagittal T2-weighted FS FSE, and sagittal and axial T1-weighted FSE. Postcontrast sequences included axial T2-weighted FSE, sagittal T1-weighted FSE, and axial and sagittal T1-weighted FS FSE. COMPARISON: None FINDINGS: No significant change in 2-3 mm retrolisthesis L3 on L4, L4 on L5 and L5 on S1. Vertebral body height s are normal. T1 hyperintense hemangioma at L2. Severe disc height loss with associated mild fibrovas cular and fibrofatty degenerative endplate changes at L5-S1. Mild disc height loss at L3-L4 and L4-L5 . The conus medullaris terminates at L1. There is normal signal in the caudal spinal cord. There is i nterspinous process. Mild non masslike soft tissue enhancement with left-sided predominance at with t he interspinous process region at L4-L5. There appears be a small defect at the left side of the liga mentum flavum at this level suggesting interval surgery. Correlate with surgical history. No abnormal fluid collections were other abnormally enhancing lesions identified. The following disc levels are specifically discussed: T12-L1: The disc does not extend beyond the endplate margin. There is mild bilateral facet joint oste oarthritis. There is no neural foraminal stenosis. There is no central canal stenosis. L1-L2: The disc does not extend beyond the endplate margin. There is moderate bilateral facet joint o steoarthritis. There is no neural foraminal stenosis. There is no central canal stenosis. L2-L3: The disc does not extend beyond the endplate margin. There is mild left and moderate right fac et joint osteoarthritis. There is no neural foraminal stenosis. There is no central canal stenosis. L3-L4: Disc is bulging. There is mild bilateral facet joint osteoarthritis. There is mild bilateral n eural foraminal stenosis. There is mild central canal stenosis. L4-L5: Disc is bulging with annular fissure. There is mild right and moderate left facet joint osteoa rthritis. There is mild to moderate left and moderate right neural foraminal stenosis. There is mild central canal stenosis. L5-S1: Disc is bulging with annular fissure. There is severe bilateral facet joint osteoarthritis. Th ere is moderate bilateral neural foraminal stenosis. There is mild central canal stenosis. IMPRESSION: 1. Likely postoperative change with mild non masslike enhancement at the L4-L5 interspinous process s pace and small defect at the left ligamentum flavum at this level. Correlate with surgical history. 2. Otherwise no significant interval change in severe lower lumbar predominant spondylosis. Reviewed, dictated and finalized at location A. IMPRESSION: 1. Likely postoperative change with mild non masslike enhancement at the L4-L5 interspinous process space and small defect at the left ligamentum flavum at th is level. Correlate with surgical history. 2. Otherwise no significant interval change in severe lower lumbar predominant spondylosis.
== END 2025-04-18 06:49 | disposition home or self-care (01) ==
PROVIDERS: PCP Internal Medicine; Visit Provider Neurological Surgery
DX: M47.26 Other spondylosis with radiculopathy, lumbar region (principal); Z98.890 Other specified postprocedural states
CPT/HCPCS: 72158; A9577